=== PATIENT | male | born 1975 | race Caucasian/White ===

== ENCOUNTER 2020-08-10 11:23 | Emergency (ER) | payer OTHER, SELFPAY ==
[2020-08-10 11:24] VITALS: BP 109/48; PULSE 61; RESP 22; TEMP 36.5; O2SAT 99; BMI 34.7
--- NOTE | 2020-08-10 11:39 | ED.RN ---
pt states that he drank at least 12 IPA beers last night.
--- NOTE | 2020-08-10 11:46 | EKG12_ITS ---
Test Reason : Blood Pressure : / mmHG Vent. Rate : 060 BPM Atrial Rate : 060 BPM P-R Int : 156 ms QRS Dur : 088 ms QT Int : 412 ms P-R-T Axes : 006 -18 010 degrees QTc Int : 412 ms Normal sinus rhythm Normal ECG Confirmed by ESTHER PEREZ, LORRAINE ([id number]), editor managing director BLACK ZELAYA ([id number]) on 08/13/2020 10:54:55 AM Referred By: Confirmed By:LORRAINE SANTANA MD
[2020-08-10 12:05] VITALS: PULSE 69; RESP 17
[2020-08-10 12:10] LABS: Absolute Lymphocyte Count 2.28 X10^3/uL (0.83-4.51); Absolute Neutrophil Count 2.8 X10^3/uL (2.0-7.7); Basophil# 0.05 X10^3/uL; Basophil% 0.8 % (0-1); Eosinophils% 6.5 % (0-5); Hematocrit 33.4 % (40-54); Hemoglobin 11.5 g/dL (13.0-16.5); Lymphocyte # 2.28 X10^3/ul (4.0); Lymphocyte % 37.2 % (19-41); Mean Corp Hgb Conc 34.4 g/dL (32-36); Mean Corpuscular Hgb 32.1 pg (27.0-32.0); Mean Corpuscular Volume 93.3 fL (80-94); Mean Platelet Vol. 10.1 fl (6.2-12.0); Monocyte# 0.57 X10^3/uL; Monocyte% 9.3 % (0-10); NRBC Flagged by Analyzer 0 % (0-5); Neutrophil # 2.78 X10^3/uL (2.7-7.7); Neutrophil % 45.4 % (47-70); Platelet Count 255 K/mm3 (150-450); RBC Distribution Width CV 12.1 % (11.6-14.6); RBC Distribution Width SD 41.8 fl (35.1-43.9); Red Blood Count 3.58 M/mm3 (4.6-6.2); White Blood Count 6.1 K/mm3 (4.4-11.0)
--- NOTE | 2020-08-10 12:15 | RAD_ITS ---
STUDY: X-RAY - ABDOMEN/PELVIS REASON FOR EXAM: Male, 45 years old. NG Placement TECHNIQUE: Single AP view of the abdomen / pelvis. COMPARISON: None. FINDINGS: Nasogastric tube with the tip in the cardia the stomach and the side-port in the distal esophagus. This should likely be advanced. Moderate gastric distention. The visualized liver, spleen and kidneys are grossly normal in size and morphology. Normal soft tissue structures. Normal visualized osseous structures. RAD/Abdomen Single View (Portable) IMPRESSION: Nasogastric tube with the tip in the cardia the stomach which likely should be advanced. Moderate gastric distention. Electronically Signed: Alex Hanley MD at 12:52 EST Tel , Service support ,
--- NOTE | 2020-08-10 12:17 | ED.RN ---
pt was placed in a seated position to prepare for ng placement. pt repeatedly stating he feels light headed, im goning to pass out. pt becomes unresponsive, eyes roll back, pt began to shake. once pt becomes alert, vomits blood. dr. maya aware.
[2020-08-10 12:19] LABS: Alcohol, Blood (Medical)-Serum < 3.0 mg/dL
[2020-08-10] MEDS: Lidocaine 4% 5 ML Ampul 2 ML INHALATION (12:23)
[2020-08-10 12:24] VITALS: BP 135/76; PULSE 93; RESP 18; O2SAT 99
[2020-08-10] MEDS: 0.9% Normal Saline 1,000 ML 999 ML IV (12:24)
[2020-08-10 12:28] LABS: AST(SGOT) 16 U/L (15-37); Alanine Aminotransfer ALT/SGPT 29 U/L (16-61); Albumin, Serum 2.9 g/dL (3.2-5.0); Alkaline Phosphatase 44 U/L (45-117); Anion Gap 8 (5-15); BUN 28 mg/dL (7-18); BUN/Creat Ratio 26.4 RATIO (10-20); Calcium,Total 7.6 mg/dL (8.5-10.1); Chloride 109 mmol/L (98-107); Creatinine, Serum 1.06 mg/dL (0.70-1.30); EST Glomerular Filtration Rate 81 mL/min (>60); Est Glom Filt Rate - Afr Amer 98 mL/min (>60); Globulin 2.9 g/dL (2.2-4.2); Glucose 131 mg/dL (74-106); Lipase 90 U/L (73-393); Potassium 3.9 mmol/L (3.5-5.1); Protein, Total 5.8 g/dL (6.4-8.2); Sodium Level 140 mmol/L (136-145)
--- NOTE | 2020-08-10 12:34 | ED.VISSUMM ---
- ER Visit Summary Date of Service: 08/10/20 Chief Complaint: GI bleed History of Present Illness: The patient is a 45 M presenting with vomiting blood. Patient states he did not feel well this morning. He started to have chills and lightheadedness. He then felt very lightheaded and passed out. During this episode he began vomiting blood. He states that he uses ibuprofen daily for back pain. He states he uses 6-10 tabs per day. He has been doing this at least for the past 6 months. Denies black stool or blood in stool. He is not on anticoagulants. He also states he drinks frequently throughout the week. He does not drink daily but drinks 12-36 beers per week. He smokes 1 cigar/week. He does drink caffeine daily. Denies drug use. Denies other complaints. No known exposure to Covid. Physical Examination: Vitals are stable. Blood pressure 135/76, temp 97.7, heart rate 93, respiratory rate 18. Pulse ox 99% on room air. Alert no acute distress. HEENT exam pallor, dry mucous membranes Neck is supple. Lungs are clear and equal bilaterally. Heart is regular rate and rhythm. Abdomen is soft nontender nondistended. No guarding or rebound Extremities are unremarkable. Skin is warm and dry. Pallor No focal neurologic deficit. Remainder of exam is unremarkable. Emergency Department Course and Treatment: EKG is sinus rhythm rate of 60 with no acute ischemic changes. CBC, chemistries are unremarkable other than hemoglobin 11.5, BUN 28. Alcohol is negative. Covid is pending. Patient had an episode of vomiting blood and syncope again in the ED. He was given Protonix IV, Zofran, IV fluids. He was ordered packed red blood cells. He was given lidocaine aerosol and NG tube was placed. NG tube suctioned bright red blood. [facility], [facility], [facility] are currently full. Discussed with [facility] for transfer. Disposition: Transfer to [facility] Impression: Upper GI bleed, syncope This note was generated with [employer] dictation software. It may contain incorrect words, spelling, and punctuation that were not noted in review of the chart prior to signing ED Disposition - Plan for ED Patient: Referrals: Yariel Vegas MD [Primary Care Provider] -
[2020-08-10 12:38] VITALS: BP 135/76; PULSE 770; RESP 18; O2SAT 98
--- NOTE | 2020-08-10 12:43 | ED.RN ---
attempted to call [facility] er to give report, no answer.
[2020-08-10] MEDS: Ondansetron 4 MG/2 ML Vial IV (12:52)
[2020-08-10 12:53] VITALS: BP 135/76; PULSE 77; RESP 18; O2SAT 100
--- NOTE | 2020-08-10 13:08 | ED.RN ---
2nd attempt to call emergency department.
--- NOTE | 2020-08-10 13:10 | ED.RN ---
per maulik at the transfer center, this rn does not need to call report to the emergency department.
--- NOTE | 2020-08-10 13:39 | ED.RN ---
girlfriend uma rojo [phone]
== END 2020-08-10 13:55 | disposition short-term general hospital (02) ==
LOC: ED 11:56
PROVIDERS: Emergency Provider Emergency Medicine; PCP Family Medicine
DX: K92.2 Gastrointestinal hemorrhage, unspecified (principal); R55 Syncope and collapse; F17.200 Nicotine dependence, unspecified, uncomplicated
CPT/HCPCS: 74018; 80053; 82077; 83690; 85025; 86850; 86900; 86901; 86920; 86922; 87426; 93005; 94640; 96365; 96375; 99285; J7030; A4216; J2405; J3490

== ENCOUNTER → 2020-08-27 11:46 | Outpatient (CLI) | payer OTHER, SELFPAY ==
[2020-08-10 11:24] VITALS: BMI 34.7
[2020-08-27 15:19] LABS: Hematocrit 33.6 % (40-54); Hemoglobin 10.4 g/dL (13.0-16.5); Mean Corpuscular Hgb 28.6 pg (27.0-32.0); Mean Corpuscular Volume 92.3 fL (80-94); Mean Platelet Vol. 9.5 fl (6.2-12.0); Platelet Count 468 K/mm3 (150-450); RBC Distribution Width CV 15.4 % (11.6-14.6); RBC Distribution Width SD 50.6 fl (35.1-43.9); Red Blood Count 3.64 M/mm3 (4.6-6.2); White Blood Count 4.6 K/mm3 (4.4-11.0)
[2020-08-27 15:45] LABS: Anion Gap 6 (5-15); BUN 11 mg/dL (7-18); BUN/Creat Ratio 10.8 RATIO (10-20); Chloride 109 mmol/L (98-107); Creatinine, Serum 1.02 mg/dL (0.70-1.30); EST Glomerular Filtration Rate 85 mL/min (>60); Est Glom Filt Rate - Afr Amer 102 mL/min (>60); Glucose 82 mg/dL (74-106); Potassium 4.2 mmol/L (3.5-5.1); Sodium Level 142 mmol/L (136-145)
== END ==
PROVIDERS: PCP Family Medicine
DX: K92.2 Gastrointestinal hemorrhage, unspecified (principal)
CPT/HCPCS: 36415; 80048; 85027

== ENCOUNTER → 2020-10-01 10:37 | Outpatient (CLI) | payer OTHER, SELFPAY ==
[2020-10-01 12:34] LABS: Hematocrit 40.9 % (40-54); Hemoglobin 13.6 g/dL (13.0-16.5); Mean Corp Hgb Conc 33.3 g/dL (32-36); Mean Corpuscular Hgb 30.1 pg (27.0-32.0); Mean Corpuscular Volume 90.5 fL (80-94); Mean Platelet Vol. 10.6 fl (6.2-12.0); Platelet Count 306 K/mm3 (150-450); RBC Distribution Width CV 14.1 % (11.6-14.6); Red Blood Count 4.52 M/mm3 (4.6-6.2); White Blood Count 4.2 K/mm3 (4.4-11.0)
[2020-10-01 12:52] LABS: ALB/GLOB Ratio 1.1 RATIO (0.9-2.4); AST(SGOT) 14 U/L (15-37); Alanine Aminotransfer ALT/SGPT 24 U/L (16-61); Albumin, Serum 3.8 g/dL (3.2-5.0); Alkaline Phosphatase 56 U/L (45-117); Anion Gap 4 (5-15); BUN 11 mg/dL (7-18); BUN/Creat Ratio 8.7 RATIO (10-20); Calcium,Total 8.9 mg/dL (8.5-10.1); Chloride 110 mmol/L (98-107); Creatinine, Serum 1.27 mg/dL (0.70-1.30); EST Glomerular Filtration Rate 66 mL/min (>60); Est Glom Filt Rate - Afr Amer 79 mL/min (>60); Ferritin 12 ng/mL (26-388); Globulin 3.6 g/dL (2.2-4.2); Glucose 99 mg/dL (74-106); Iron 43 ug/dL (65-175); Potassium 4.1 mmol/L (3.5-5.1); Protein, Total 7.4 g/dL (6.4-8.2); Sodium Level 139 mmol/L (136-145)
== END ==
PROVIDERS: PCP Family Medicine; Referring Provider Family Medicine; Visit Provider Family Medicine
DX: K92.2 Gastrointestinal hemorrhage, unspecified (principal); R79.89 Other specified abnormal findings of blood chemistry
CPT/HCPCS: 36415; 80053; 82728; 83540; 85027

== ENCOUNTER → 2020-10-10 14:36 | Outpatient (CLI) | payer OTHER, SELFPAY ==
[2020-10-10 17:27] LABS: Hematocrit 40.3 % (40-54); Hemoglobin 13.3 g/dL (13.0-16.5); Mean Corpuscular Hgb 29.4 pg (27.0-32.0); Mean Corpuscular Volume 89.2 fL (80-94); Mean Platelet Vol. 10.5 fl (6.2-12.0); Platelet Count 297 K/mm3 (150-450); RBC Distribution Width CV 14.2 % (11.6-14.6); RBC Distribution Width SD 46.5 fl (35.1-43.9); Red Blood Count 4.52 M/mm3 (4.6-6.2); White Blood Count 4.5 K/mm3 (4.4-11.0)
[2020-10-10 17:33] LABS: Prothrombin Time (Protime)PT. 12.3 SECONDS (11.7-14.9)
[2020-10-10 17:59] LABS: ALB/GLOB Ratio 1.1 RATIO (0.9-2.4); AST(SGOT) 25 U/L (15-37); Alanine Aminotransfer ALT/SGPT 35 U/L (16-61); Albumin, Serum 3.9 g/dL (3.2-5.0); Alkaline Phosphatase 55 U/L (45-117); Anion Gap 7 (5-15); BUN 12 mg/dL (7-18); BUN/Creat Ratio 11.3 RATIO (10-20); Calcium,Total 9.2 mg/dL (8.5-10.1); Chloride 104 mmol/L (98-107); Creatinine, Serum 1.06 mg/dL (0.70-1.30); EST Glomerular Filtration Rate 81 mL/min (>60); Est Glom Filt Rate - Afr Amer 98 mL/min (>60); Globulin 3.7 g/dL (2.2-4.2); Glucose 85 mg/dL (74-106); Potassium 3.8 mmol/L (3.5-5.1); Protein, Total 7.6 g/dL (6.4-8.2); Sodium Level 141 mmol/L (136-145)
[2020-10-12 12:17] LABS: AFP, Tumor Marker 3.8 ng/mL (0.0-8.3)
== END ==
PROVIDERS: PCP Family Medicine; Referring Provider Internal Medicine Gastroenterology; Visit Provider Internal Medicine Gastroenterology
DX: K74.60 Unspecified cirrhosis of liver (principal)
CPT/HCPCS: 36415; 80053; 82105; 85027; 85610

== ENCOUNTER → 2020-10-29 14:01 | Outpatient (CLI) | payer OTHER, SELFPAY | PROVIDERS: PCP Family Medicine; Referring Provider Internal Medicine Gastroenterology; Visit Provider Internal Medicine Gastroenterology | DX: Z11.59 Encounter for screening for other viral diseases (principal) | CPT/HCPCS: 87635; C9803; U0002 ==

== ENCOUNTER → 2020-11-07 10:05 | Outpatient (CLI) | payer OTHER, SELFPAY ==
[2020-11-07 13:31] LABS: Anion Gap 4 (5-15); BUN 13 mg/dL (7-18); BUN/Creat Ratio 12.9 RATIO (10-20); Calcium,Total 8.8 mg/dL (8.5-10.1); Chloride 108 mmol/L (98-107); Creatinine, Serum 1.01 mg/dL (0.70-1.30); EST Glomerular Filtration Rate 85 mL/min (>60); Est Glom Filt Rate - Afr Amer 103 mL/min (>60); Glucose 83 mg/dL (74-106); Magnesium 2.1 mg/dL (1.6-2.6); Sodium Level 140 mmol/L (136-145)
[2020-11-10 18:44] LABS: Thyroid Stim Hormone (TSH) 0.98 uIU/mL (0.358-3.74)
== END ==
PROVIDERS: PCP Family Medicine; Referring Provider Internal Medicine Gastroenterology; Visit Provider Internal Medicine Gastroenterology
DX: I49.9 Cardiac arrhythmia, unspecified (principal)
CPT/HCPCS: 36415; 80048; 83735; 84443

== ENCOUNTER → 2021-12-17 | Outpatient (CLI) | payer OTHER, SELFPAY ==
[2021-12-17 15:52] LABS: Absolute Lymphocyte Count 1.39 X10^3/uL (0.83-4.51); Absolute Neutrophil Count 2.3 X10^3/uL (2.0-7.7); Basophil# 0.03 X10^3/uL; Basophil% 0.7 % (0-1); Eosinophil# 0.19 X10^3/uL; Eosinophils% 4.3 % (0-5); Hematocrit 45.8 % (40-54); Hemoglobin 15.6 g/dL (13.0-16.5); Lymphocyte # 1.39 X10^3/ul (0.83-4.51); Lymphocyte % 31.5 % (19-41); Mean Corp Hgb Conc 34.1 g/dL (32-36); Mean Corpuscular Hgb 32.4 pg (27.0-32.0); Mean Platelet Vol. 10.2 fl (6.2-12.0); Monocyte# 0.51 X10^3/uL; Monocyte% 11.6 % (0-10); NRBC Flagged by Analyzer 0 % (0-5); Neutrophil # 2.27 X10^3/uL (2.7-7.7); Neutrophil % 51.4 % (47-70); Platelet Count 290 K/mm3 (150-450); RBC Distribution Width CV 12.1 % (11.6-14.6); RBC Distribution Width SD 42.4 fl (35.1-43.9); Red Blood Count 4.82 M/mm3 (4.6-6.2); White Blood Count 4.4 K/mm3 (4.4-11.0)
[2021-12-17 16:19] LABS: ALB/GLOB Ratio 1.1 RATIO (0.9-2.4); AST(SGOT) 33 U/L (15-37); Alanine Aminotransfer ALT/SGPT 63 U/L (16-61); Albumin, Serum 3.9 g/dL (3.2-5.0); Alkaline Phosphatase 41 U/L (45-117); Anion Gap 5 (5-15); BUN 13 mg/dL (7-18); BUN/Creat Ratio 12.5 RATIO (10-20); Calcium,Total 9.4 mg/dL (8.5-10.1); Chloride 107 mmol/L (98-107); Cholesterol 175 mg/dL (200); Creatinine, Serum 1.04 mg/dL (0.70-1.30); EST Glomerular Filtration Rate 82 mL/min (>60); Est Glom Filt Rate - Afr Amer 99 mL/min (>60); Ferritin 87 ng/mL (26-388); GGTP 26 U/L (15-85); Globulin 3.6 g/dL (2.2-4.2); Glucose 75 mg/dL (74-106); High Density Lipoprotein 50 mg/dL; Iron 142 ug/dL (65-175); Potassium 4.1 mmol/L (3.5-5.1); Protein, Total 7.5 g/dL (6.4-8.2); Sodium Level 138 mmol/L (136-145); Triglycerides 131 mg/dL; Very Low Density Lipoprotein 26 mg/dL (5-40)
[2021-12-17 16:41] LABS: Vitamin B12 292 pg/mL (211-911); Vitamin D,25 Hydroxy 30.7 ng/mL
== END | disposition home or self-care (01) ==
LOC: MFPLAB 12:31
PROVIDERS: PCP Family Medicine; Visit Provider Family Medicine
DX: F10.10 Alcohol abuse, uncomplicated (principal)
CPT/HCPCS: 36415; 80053; 80061; 82306; 82607; 82728; 82977; 83540; 85025

== ENCOUNTER → 2022-01-08 | Outpatient (CLI) | payer OTHER, SELFPAY ==
--- NOTE | 2022-01-08 07:51 | US_ITS ---
STUDY: ABDOMINAL ULTRASOUND - RIGHT UPPER QUADRANT REASON FOR VISIT: Male, 46 years old ALCOHOL ABUSE TECHNIQUE: Ultrasound evaluation of the right upper quadrant was performed with real-time and static stanley-scale imaging. TECHNICAL QUALITY: Adequate. COMPARISON: None. FINDINGS: Liver: The liver measures 15.1 cm. There is a heterogeneous echogenicity of the liver. The bile ducts are within normal limits. There is hepatic color flow. The direction of portal flow is hepatopetal. There is no demonstrated mass lesion. Gallbladder: Normal distended gallbladder. The gallbladder wall measures 2 mm. There is a negative sonographic Martel''s sign. There is no pericholecystic fluid. There are no gallstones. Common Bile Duct (C.B.D.): The common bile duct measures 4 mm. Pancreas: Normal size of the head, body and tail of the pancreas. There is normal echogenicity of the pancreas. There is no demonstrated pancreatic mass or cyst. Right Kidney: Normal size of the right kidney. The right kidney measures 11.6 cm x 5.9 cm x 5.9 cm. Normal renal cortex. The right cortex measures 1.5 cm. There is no demonstrated renal mass or cyst. There is no right hydronephrosis. US/Abdomen Limited IMPRESSION: Heterogeneous echotexture of the liver. Electronically Signed: Juan Miguel Iverson MD at 11:06 EDT ,
--- NOTE | 2022-01-08 07:52 | US_ITS ---
STUDY: ABDOMINAL ULTRASOUND - ELASTOGRAPHY REASON FOR VISIT: Male, 46 years old. Alcohol abuse. TECHNIQUE: Liver stiffness measurements were obtained on a [employer] RS 85 ultrasound machine using a CA 1-7 probe following the SRU guidelines. 3 measurements were obtained using a 2-D-SWE method. TheIQR/M was 19 % suggesting a quality data set. TECHNICAL QUALITY: Adequate. COMPARISON: Comparison is made with prior study done earlier in the day. FINDINGS: Liver: Fatty infiltration of the liver. Median liver stiffness measured 9.3 kPa. US/Elastography Parenchyma/Organ IMPRESSION: Liver stiffness measures 9.3 kPa compatible with F2-F3 (Mild to moderate liver fibrosis) Metavir score. Electronically Signed: Juan Miguel Iverson MD at 11:03 EDT ,
== END | disposition home or self-care (01) ==
PROVIDERS: PCP Family Medicine; Referring Provider Family Medicine; Visit Provider Family Medicine
DX: F10.10 Alcohol abuse, uncomplicated (principal)
CPT/HCPCS: 76705; 76981

== ENCOUNTER → 2022-03-31 | Outpatient (CLI) | payer OTHER, SELFPAY ==
[2022-03-31 16:57] LABS: Absolute Lymphocyte Count 1.96 X10^3/uL (0.83-4.51); Absolute Neutrophil Count 2.6 X10^3/uL (2.0-7.7); Basophil# 0.07 X10^3/uL; Basophil% 1.2 % (0-1); Eosinophil# 0.41 X10^3/uL; Eosinophils% 7.3 % (0-5); Hematocrit 41.3 % (40-54); Hemoglobin 14.4 g/dL (13.0-16.5); Lymphocyte # 1.96 X10^3/ul (0.83-4.51); Lymphocyte % 34.9 % (19-41); Mean Corp Hgb Conc 34.9 g/dL (32-36); Mean Corpuscular Hgb 32.4 pg (27.0-32.0); Mean Platelet Vol. 9.7 fl (6.2-12.0); Monocyte# 0.53 X10^3/uL; Monocyte% 9.4 % (0-10); NRBC Flagged by Analyzer 0 % (0-5); Neutrophil # 2.62 X10^3/uL (2.7-7.7); Neutrophil % 46.8 % (47-70); Platelet Count 252 K/mm3 (150-450); RBC Distribution Width CV 12.4 % (11.6-14.6); RBC Distribution Width SD 42.9 fl (35.1-43.9); Red Blood Count 4.44 M/mm3 (4.6-6.2); White Blood Count 5.6 K/mm3 (4.4-11.0)
[2022-03-31 17:04] LABS: Prothrombin Time (Protime)PT. 12.4 SECONDS (11.7-14.9)
[2022-03-31 17:10] LABS: Erythrocyte Sedimentation Rate 8 mm/hr (0-20)
[2022-03-31 17:22] LABS: AST(SGOT) 25 U/L (15-37); Alanine Aminotransfer ALT/SGPT 42 U/L (16-61); Albumin, Serum 3.8 g/dL (3.2-5.0); Alkaline Phosphatase 53 U/L (45-117); Anion Gap 8 (5-15); BUN 14 mg/dL (7-18); BUN/Creat Ratio 13.9 RATIO (10-20); CRP 2.95 mg/L (0.0-3.0); Calcium,Total 8.9 mg/dL (8.5-10.1); Chloride 105 mmol/L (98-107); Creatinine, Serum 1.01 mg/dL (0.70-1.30); EST Glomerular Filtration Rate 85 mL/min (>60); Est Glom Filt Rate - Afr Amer 103 mL/min (>60); Ferritin 116 ng/mL (26-388); Globulin 3.7 g/dL (2.2-4.2); Glucose 82 mg/dL (74-106); LDH 211 U/L (87-241); Potassium 3.6 mmol/L (3.5-5.1); Protein, Total 7.5 g/dL (6.4-8.2); Sodium Level 140 mmol/L (136-145)
[2022-03-31 17:26] LABS: Hemoglobin A1c 5.3 % (3.8-5.6)
[2022-03-31 17:42] LABS: HIV - WCH Non-Reactive (Nonreactive)
[2022-04-02 14:09] LABS: Anti-Centromere B Ab <0.2 AI (0.0-0.9); Anti-Chromatin <0.2 AI (0.0-0.9); Anti-Jo <0.2 AI (0.0-0.9); Anti-Scleroderma-70 AB <0.2 AI (0.0-0.9); RNP Ab <0.2 AI (0.0-0.9); SJOGREN'S Anti-SS-A test < 0.2 AI (0.0-0.9); SJOGREN'S Anti-SS-B test < 0.2 AI (0.0-0.9); Smith Ab <0.2 AI (0.0-0.9)
[2022-04-02 14:51] LABS: Anti-Mitochondrial AB <20.0 Units (0.0-20.0); Anti-dsDNA Ab <1 IU/mL (0-9)
[2022-04-04 14:07] LABS: Angiotensin Convert Enzyme 62 U/L (14-82); Ceruloplasmin 21.9 mg/dL (16.0-31.0); Cytoplasmic Ab (C-ANCA) <1:20 titer (Neg:<1:20); HEPATITIS B SURFACE AG Negative (Negative); Hep C Antibodies <0.1 s/co ratio (0.0-0.9); Hepatitis A IgM Antibody Negative (Negative); Hepatitis B Core AB IgM Negative (Negative)
[2022-04-05 11:17] LABS: Anti-Smooth Muscle ABS 4 Units (0-19)
[2022-04-05 11:18] LABS: AFP, Tumor Marker 4.9 ng/mL (0.0-6.9); Copper, Serum or Plasma 82 ug/dL (69-132); Haptoglobin 87 mg/dL (23-355); Perinuclear Ab (P-ANCA) <1:20 titer (Neg:<1:20)
== END | disposition home or self-care (01) ==
PROVIDERS: PCP Family Medicine; Visit Provider Internal Medicine Gastroenterology
DX: K76.9 Liver disease, unspecified (principal)
CPT/HCPCS: 80053; 80074; 82105; 82140; 82164; 82390; 82525; 82728; 83010; 83036; 83516; 83615; 85025; 85610; 85652; 86140; 86225; 86235; 86256; 86703

== ENCOUNTER → 2022-07-26 | Outpatient (CLI) | payer OTHER, SELFPAY ==
[2022-07-26 16:46] LABS: Absolute Lymphocyte Count 1.76 X10^3/uL (0.83-4.51); Absolute Neutrophil Count 6.2 X10^3/uL (2.0-7.7); Basophil# 0.05 X10^3/uL; Basophil% 0.6 % (0-1); Eosinophil# 0.08 X10^3/uL; Eosinophils% 0.9 % (0-5); Hematocrit 42.7 % (40-54); Hemoglobin 14.7 g/dL (13.0-16.5); Lymphocyte # 1.76 X10^3/ul (0.83-4.51); Lymphocyte % 20.2 % (19-41); Mean Corp Hgb Conc 34.4 g/dL (32-36); Mean Corpuscular Hgb 32.2 pg (27.0-32.0); Mean Corpuscular Volume 93.4 fL (80-94); Mean Platelet Vol. 10.4 fl (6.2-12.0); Monocyte# 0.59 X10^3/uL; Monocyte% 6.8 % (0-10); NRBC Flagged by Analyzer 0 % (0-5); Neutrophil # 6.19 X10^3/uL (2.7-7.7); Neutrophil % 71.2 % (47-70); Platelet Count 291 K/mm3 (150-450); RBC Distribution Width CV 12.1 % (11.6-14.6); RBC Distribution Width SD 41.7 fl (35.1-43.9); Red Blood Count 4.57 M/mm3 (4.6-6.2); White Blood Count 8.7 K/mm3 (4.4-11.0)
[2022-07-26 17:20] LABS: ALB/GLOB Ratio 1.1 RATIO (0.9-2.4); AST(SGOT) 20 U/L (15-37); Alanine Aminotransfer ALT/SGPT 28 U/L (16-61); Albumin, Serum 3.9 g/dL (3.2-5.0); Alkaline Phosphatase 43 U/L (45-117); Anion Gap 6 (5-15); BUN 20 mg/dL (7-18); BUN/Creat Ratio 13.1 RATIO (10-20); Calcium,Total 9.3 mg/dL (8.5-10.1); Chloride 105 mmol/L (98-107); Creatinine, Serum 1.53 mg/dL (0.70-1.30); EST Glomerular Filtration Rate 53 mL/min (>60); Est Glom Filt Rate - Afr Amer 64 mL/min (>60); Globulin 3.4 g/dL (2.2-4.2); Glucose 80 mg/dL (74-106); Potassium 4.1 mmol/L (3.5-5.1); Protein, Total 7.3 g/dL (6.4-8.2); Sodium Level 138 mmol/L (136-145)
== END | disposition home or self-care (01) ==
LOC: LAB 14:36
PROVIDERS: PCP Family Medicine; Referring Provider Internal Medicine Gastroenterology; Visit Provider Internal Medicine Gastroenterology
DX: K76.9 Liver disease, unspecified (principal)
CPT/HCPCS: 36415; 80053; 85025

== ENCOUNTER → 2022-12-27 | Outpatient (CLI) | payer OTHER, MEDICAID, SELFPAY ==
[2022-12-27 12:01] LABS: Absolute Lymphocyte Count 1.39 X10^3/uL (0.83-4.51); Absolute Neutrophil Count 2.1 X10^3/uL (2.0-7.7); Basophil# 0.04 X10^3/uL; Eosinophil# 0.24 X10^3/uL; Eosinophils% 5.9 % (0-5); Hematocrit 46.9 % (40-54); Hemoglobin 15.7 g/dL (13.0-16.5); Lymphocyte # 1.39 X10^3/ul (0.83-4.51); Lymphocyte % 34.3 % (19-41); Mean Corp Hgb Conc 33.5 g/dL (32-36); Mean Corpuscular Volume 95.5 fL (80-94); Mean Platelet Vol. 9.4 fl (6.2-12.0); Monocyte% 7.4 % (0-10); NRBC Flagged by Analyzer 0 % (0-5); Neutrophil # 2.08 X10^3/uL (2.7-7.7); Neutrophil % 51.4 % (47-70); Platelet Count 267 K/mm3 (150-450); RBC Distribution Width SD 46.1 fl (35.1-43.9); Red Blood Count 4.91 M/mm3 (4.6-6.2); White Blood Count 4.1 K/mm3 (4.4-11.0)
[2022-12-27 12:29] LABS: ALB/GLOB Ratio 1.1 RATIO (0.9-2.4); AST(SGOT) 17 U/L (15-37); Alanine Aminotransfer ALT/SGPT 25 U/L (16-61); Albumin, Serum 3.9 g/dL (3.2-5.0); Alkaline Phosphatase 49 U/L (45-117); Anion Gap 4 (5-15); BUN 14 mg/dL (7-18); BUN/Creat Ratio 12.5 RATIO (10-20); Calcium,Total 9.3 mg/dL (8.5-10.1); Chloride 107 mmol/L (98-107); Creatinine, Serum 1.12 mg/dL (0.70-1.30); EST Glomerular Filtration Rate 75 mL/min (>60); Est Glom Filt Rate - Afr Amer 91 mL/min (>60); Globulin 3.7 g/dL (2.2-4.2); Glucose 95 mg/dL (74-106); Potassium 4.2 mmol/L (3.5-5.1); Protein, Total 7.6 g/dL (6.4-8.2); Sodium Level 140 mmol/L (136-145)
== END | disposition home or self-care (01) ==
LOC: LAB 11:37
PROVIDERS: PCP Family Medicine; Referring Provider Nurse Practitioner Adult Health; Visit Provider Nurse Practitioner Adult Health
DX: K74.00 Hepatic fibrosis, unspecified (principal)
CPT/HCPCS: 36415; 80053; 85025

== ENCOUNTER → 2023-01-13 | Outpatient (CLI) | payer OTHER, MEDICAID, SELFPAY ==
--- NOTE | 2023-01-13 09:46 | US_ITS ---
STUDY: ABDOMINAL ULTRASOUND - RIGHT UPPER QUADRANT; ELASTOGRAPHY REASON FOR VISIT: Male, 47 years old. Hepatic fibrosis. TECHNIQUE: Ultrasound evaluation of the right upper quadrant was performed with real-time and static stanley-scale imaging. Point quantification shear wave elastography was performed ([employer]). TECHNICAL QUALITY: Adequate. COMPARISON: Comparison is made with prior study dated January 08, 2022. FINDINGS: Liver: The liver measures 16.9 cm. There is a heterogeneous echogenicity of the liver. The bile ducts are within normal limits. There is hepatic color flow. The direction of portal flow is hepatopetal. There is no demonstrated mass lesion. Median liver stiffness measured 5.3 kPa. Gallbladder: Normal distended gallbladder. The gallbladder wall measures 2.0 mm. There is a negative sonographic Martel''s sign. There is no pericholecystic fluid. There are no gallstones. Common Bile Duct (C.B.D.): The common bile duct measures 4 mm. Pancreas: There is normal echogenicity of the visualized pancreas. There is no demonstrated pancreatic mass or cyst. Right Kidney: Normal size of the right kidney. The right kidney measures 10.9 cm x 6.1 cm x 5.2 cm. Normal renal cortex. The right cortex measures 1.5 cm. There is no demonstrated renal mass or cyst. There is no right hydronephrosis. US/ABD Limited w/ Elastography IMPRESSION: 1. Liver stiffness measures 5.3 kPa compatible with F0-F1 (Normal to mild liver fibrosis) Metavir score. Electronically Signed: Juan Miguel Iverson MD at 10:02 EDT ,
== END | disposition home or self-care (01) ==
PROVIDERS: PCP Family Medicine; Referring Provider Nurse Practitioner Adult Health; Visit Provider Nurse Practitioner Adult Health
DX: K74.00 Hepatic fibrosis, unspecified (principal)
CPT/HCPCS: 76705; 76981

== ENCOUNTER 2024-01-26 12:25 | Inpatient (IN) | payer OTHER, MEDICAID, SELFPAY ==
[2024-01-26] VITALS (21 sets, daily range): BP systolic 61–122; BP diastolic 36–76; PULSE 59–119; RESP 12–27; TEMP 35–36.9; O2SAT 93–100; BMI 30.8
[2024-01-26] MEDS: 0.9% Normal Saline (1000mL) 1,000 ML 999 ML IV (12:38)
[2024-01-26] MEDS: Ondansetron 4 MG/2 ML Vial IV ×2 (12:41→14:25)
--- NOTE | 2024-01-26 12:41 | EDS_ITS ---
HPI <JANKI Cabrera - Last Filed: 01/26/24 15:45> History of Present Illness Chief Complaint: GI Bleed Narrative Narrative: 49-year-old male presents after vomiting blood. He did not feel well this morning and around 11 AM had bright red bloody emesis x 2. He states he passed out next to the toilet and when he woke up he called 911. He has not had any vomiting earlier this week and denies abdominal pain. Denies recent melena or hematochezia. He drinks 12-24 beers approximately 3 days a week. He states he had similar GI bleeding and perforated gastric ulcers in 2020 and was seen at [place] and transferred to [facility]. He does not think he had varices. He currently takes no medications. PFSH <JANKI Cabrera - Last Filed: 01/26/24 15:45> [facility] Medical History Hx of gastric ulcer Hx of gastrointestinal hemorrhage Home Medications ?Medication ?Instructions ?Recorded ?Last Taken ?Type NK 01/26/24 Unknown History Allergy/AdvReac Type Severity Reaction Status Date / Time No Known Allergies Allergy Verified 01/26/24 12:31 Social History Smoking Status: Current some day smoker tobacco type: cigars ROS <JANKI Cabrera - Last Filed: 01/26/24 15:45> ROS ED ROS Narrative Constitutional: Negative for fever, chills, malaise. CVS: Negative for chest pain. Respiratory: Negative for shortness of breath. GI: Negative for abdominal pain, melena, hematochezia. EXAM <JANKI Cabrera - Last Filed: 01/26/24 15:45> Physical Exam Narrative Exam Narrative: CONST: Patient lying down in bed in no distress. EYES: Normal inspection. ENT: Normal inspection, moist mucous membranes. Dried red blood around his mouth. NECK: Normal inspection. RESP: No respiratory distress, CTAB. CVS: Regular rate and rhythm, no murmur, no gallop. ABD: Soft and nontender, no guarding or rebound, nondistended, no hepatosplenomegaly. SKIN: Color normal, no rash, warm, dry, intact. EXTREMITIES: Normal appearance, no pedal edema. NEURO: Alert and answering questions appropriately. PSYCH: Normal affect. Const Vital Signs: 01/26/24 12:25 01/26/24 12:26 01/26/24 12:33 Temperature 95.0 F L Temperature Source Temporal Pulse Rate 59 L Respiratory Rate 17 Respiratory Pattern Normal Blood Pressure 75/44 L 84/48 L Blood Pressure Mean 54 60 Pulse Ox 95 Oxygen Delivery Method Room Air 01/26/24 12:33 01/26/24 12:37 01/26/24 12:43 Temperature Temperature Source Pulse Rate 71 65 70 Respiratory Rate 21 H 16 12 Respiratory Pattern Blood Pressure 97/64 97/64 Blood Pressure Mean 74 75 Pulse Ox 97 93 Oxygen Delivery Method Room Air 01/26/24 12:45 01/26/24 13:00 01/26/24 13:15 Temperature Temperature Source Pulse Rate 70 Respiratory Rate 14 Respiratory Pattern Blood Pressure 107/72 105/66 111/68 Blood Pressure Mean 81 78 82 Pulse Ox 94 Oxygen Delivery Method 01/26/24 13:16 01/26/24 13:30 01/26/24 13:45 Temperature Temperature Source Pulse Rate 72 73 78 Respiratory Rate 17 18 27 H Respiratory Pattern Blood Pressure 112/73 110/61 Blood Pressure Mean 84 76 Pulse Ox 97 96 97 Oxygen Delivery Method <Dr. Bam Quezada, DO - Last Filed: 01/26/24 19:15> Physical Exam Const Vital Signs: 01/26/24 12:25 01/26/24 12:26 01/26/24 12:33 Temperature 95.0 F L Temperature Source Temporal Pulse Rate 59 L Respiratory Rate 17 Respiratory Pattern Normal Blood Pressure 75/44 L 84/48 L Blood Pressure Mean 54 60 Pulse Ox 95 Oxygen Delivery Method Room Air 01/26/24 12:33 01/26/24 12:37 01/26/24 12:43 Temperature Temperature Source Pulse Rate 71 65 70 Respiratory Rate 21 H 16 12 Respiratory Pattern Blood Pressure 97/64 97/64 Blood Pressure Mean 74 75 Pulse Ox 97 93 Oxygen Delivery Method Room Air 01/26/24 12:45 01/26/24 13:00 01/26/24 13:15 Temperature Temperature Source Pulse Rate 70 Respiratory Rate 14 Respiratory Pattern Blood Pressure 107/72 105/66 111/68 Blood Pressure Mean 81 78 82 Pulse Ox 94 Oxygen Delivery Method 01/26/24 13:16 01/26/24 13:30 01/26/24 13:45 Temperature Temperature Source Pulse Rate 72 73 78 Respiratory Rate 17 18 27 H Respiratory Pattern Blood Pressure 112/73 110/61 Blood Pressure Mean 84 76 Pulse Ox 97 96 97 Oxygen Delivery Method MDM <JANKI Cabrera - Last Filed: 01/26/24 15:45> [facility] Narrative Medical decision making narrative: Patient with history of heavy alcohol use has had 2 episodes of bright red emesis followed by syncopal episode. He is awake and alert lying down in bed. Initial BP 75/44, heart rate in the 60s, and otherwise stable vital signs. He has dried red blood around his mouth. Abdomen is soft, nontender, nondistended. Hemoglobin is normal at 14.1. CMP is also overall within normal limits. INR is 1.0. CT shows findings suggestive of colitis and questionable blood within the stomach. After 1 L of IV fluids, Protonix bolus and drip, and Zofran patient's blood pressure is improving and is 110/61, HR 73. Around 2:10 PM patient had another episode bright red emesis approximately 120 cc. I consulted GI and DrDelon Arroyo recommended giving Rocephin and octreotide and will see the patient during admission. Case will be discussed with the hospitalist. Lab Data Attestation: I reviewed the patient's lab results. Labs: Laboratory Results - last 24 hr 01/26/24 01/26/24 12:40 12:50 WBC 7.5 RBC 4.34 L Hgb 14.1 Hct 40.6 MCV 93.5 MCH 32.5 H MCHC 34.7 RDW Std Deviation 45.2 H RDW Coeff of Rosmery 13.1 Plt Count 251 MPV 9.6 Immature Gran % (Auto) 1.200 H Neut % (Auto) 32.9 L Lymph % (Auto) 50.0 H Doniphan % (Auto) 10.3 H Eos % (Auto) 4.7 Baso % (Auto) 0.9 Absolute Neuts (auto) 2.5 Absolute Lymphs (auto) 3.73 Nucleated RBC % 0 PT 13.2 INR 1.0 Sodium 145 Potassium 3.7 Chloride 111 H Carbon Dioxide 21.0 Anion Gap 13 BUN 15 Creatinine 1.23 Estim Creat Clear Calc 100.20 Est GFR (MDRD) Af Amer 81 Est GFR (MDRD) Non-Af 67 BUN/Creatinine Ratio 12.2 Glucose 139 H Lactic Acid 3.2 H* Calcium 8.6 Phosphorus 4.3 Magnesium 2.1 Total Bilirubin 0.40 Direct Bilirubin 0.15 AST 24 ALT 41 Alkaline Phosphatase 45 Total Protein 7.1 Albumin 3.3 Globulin 3.8 Lipase 31 Blood Type B POSITIVE Antibody Screen NEGATIVE Crossmatch See Detail Radiography Diagnostic Testing: Clinical Impression(s) from Imaging Studies Abdomen/Pelvis CT 01/26/24 12:43 IMPRESSION: Findings suggestive of colitis. Questionable blood within the stomach. Clinical correlation recommended. Electronically Signed: Juan Miguel Iverson MD at 13:42 EDT , EKG Initial EKG: Attestation: I personally reviewed and interpreted this EKG as follows: Interpretation: Sinus Rhythm and No Acute Injury Pattern Comments: Normal sinus rhythm at 63 bpm Normal intervals, no acute ischemic changes <Dr. Bam Quezada, DO - Last Filed: 01/26/24 19:15> [facility] MDM Narrative Medical decision making narrative: Patient with history of heavy alcohol use has had 2 episodes of bright red emesis followed by syncopal episode. He is awake and alert lying down in bed. Initial BP 75/44, heart rate in the 60s, and otherwise stable vital signs. He has dried red blood around his mouth. Abdomen is soft, nontender, nondistended. Hemoglobin is normal at 14.1. CMP is also overall within normal limits. INR is 1.0. CT shows findings suggestive of colitis and questionable blood within the stomach. After 1 L of IV fluids, Protonix bolus and drip, and Zofran patient's blood pressure is improving and is 110/61, HR 73. Around 2:10 PM patient had another episode bright red emesis approximately 120 cc. I consulted GI and Dr. Arroyo recommended giving Rocephin and octreotide and will see the patient during admission. Case will be discussed with the hospitalist. Addendum Patient was seen and examined with Kathy physician front end assistant All components of the history and physical confirmed and agreed. History of present illness and physical exam: Patient is a 49-year-old male who presented to the emergency department with chief complaint of vomiting blood. He states that he did not not feel well when he woke up this morning and noted that he had 2 episodes of bright red blood into the toilet. He states that he passed out near the toilet and woke up and immediately called 911. He states that he does have a history of this approximately 3 years ago where he was transferred to [place] for a perforated ulcer he states that he had a endoscopy at that point time and does not remember being told that he has any history of esophageal varices. Patient denies any medications. States that he did have a period of time where he stopped drinking however he resumed drinking recently. Patient states that he did vomit last night however noted that he did not have any blood in his vomit at that point in time. Physical exam General: Patient was lying in bed resting comfortably did not appear to be in acute distress Head: Atraumatic, normocephalic ENT: Patient has dried blood around his mouth no active bleeding in the posterior pharynx noted Neck: Soft, supple, trachea midline Respiratory: Clear to auscultation bilaterally no rales rhonchi wheeze noted Cardiovascular: Regular rate and rhythm no murmurs gallops are noted Abdomen: Soft, nondistended, nontender to palpation no rebound or guarding on exam Extremities: +5/5 strength in the bilateral lower extremities Neurological: Patient flank pain is that he was at [facility] years 2023 Psychiatric: Mood affect appropriate MDM Patient's CBC was reviewed and showed no evidence of leukocytosis white blood count was notably 7.5, hemoglobin stable at 14.1, INR normal 1.5, sodium was notably normal 145, potassium normal at 3.7, creatinine normal 1.23. Patient lactic acid was elevated at 3.2, magnesium normal at 2.1, total bilirubin normal at 0.40. Patient AST and ALT are 24 and 41 respectively. Patient's lipase normal at 31. Patient's CT abdomen pelvis was reviewed as well which showed findings suggestive of colitis. Questionable blood within the stomach which would be in line with the vomiting blood that he has currently. Patient was given Protonix followed by placed on Protonix drip. Around 2:10 PM patient had another episode of bright red hematemesis about 120 cc. GI was consulted who recommended giving Rocephin octreotide which was ordered. Patient's case was discussed with hospitalist for admission. Plan: -Patient was given Rocephin, octreotide, Protonix and placed on Protonix drip -Patient case discussed with hospitalist for admission -Patient case discussed with gastroenterology Final impression: Upper GI bleed Disposition: Patient will be admitted to the hospital Supervising attending attestation: Bam Quezada D.O. Lab Data Labs: Laboratory Results - last 24 hr 01/26/24 01/26/24 12:40 12:50 WBC 7.5 RBC 4.34 L Hgb 14.1 Hct 40.6 MCV 93.5 MCH 32.5 H MCHC 34.7 RDW Std Deviation 45.2 H RDW Coeff of Rosemry 13.1 Plt Count 251 MPV 9.6 Immature Gran % (Auto) 1.200 H Neut % (Auto) 32.9 L Lymph % (Auto) 50.0 H Doniphan % (Auto) 10.3 H Eos % (Auto) 4.7 Baso % (Auto) 0.9 Absolute Neuts (auto) 2.5 Absolute Lymphs (auto) 3.73 Nucleated RBC % 0 PT 13.2 INR 1.0 Sodium 145 Potassium 3.7 Chloride 111 H Carbon Dioxide 21.0 Anion Gap 13 BUN 15 Creatinine 1.23 Estim Creat Clear Calc 100.20 Est GFR (MDRD) Af Amer 81 Est GFR (MDRD) Non-Af 67 BUN/Creatinine Ratio 12.2 Glucose 139 H Lactic Acid 3.2 H* Calcium 8.6 Phosphorus 4.3 Magnesium 2.1 Total Bilirubin 0.40 Direct Bilirubin 0.15 AST 24 ALT 41 Alkaline Phosphatase 45 Total Protein 7.1 Albumin 3.3 Globulin 3.8 Lipase 31 Blood Type B POSITIVE Antibody Screen NEGATIVE Crossmatch See Detail Radiography Diagnostic Testing: Clinical Impression(s) from Imaging Studies Abdomen/Pelvis CT 01/26/24 12:43 IMPRESSION: Findings suggestive of colitis. Questionable blood within the stomach. Clinical correlation recommended. Electronically Signed: Juan Miguel Iverson MD at 13:42 EDT , Discharge Plan Dx/Rx/DC Orders Clinical Impression: Acute upper gastrointestinal bleeding, Alcohol abuse, Acute hypotension, Syncope Disposition Disposition: Acute Care Hospital [facility] Discharge Date/Time: 01/26/24 16:13
--- NOTE | 2024-01-26 12:43 | CT_ITS ---
STUDY: CT ABDOMEN AND PELVIS WITH CONTRAST REASON FOR EXAM: Male, 49 years old. Hematemesis. History of GI bleed. Gastric ulcers. RADIATION DOSAGE (If Supplied By Facility): CTDIvol = ( 19.60 ) mGy, DLP = ( 1374.69 ) mGycm TECHNIQUE: Transaxial images were obtained from the dome of the diaphragm to the symphysis pubis without oral contrast. IV 100mL Isovue-300 was administered. Sagittal and coronal images were reconstructed. Individualized dose optimization techniques were used for this CT. COMPARISON: None. FINDINGS: Minimal degree of dependent bibasilar atelectasis. The visualized portions of the heart are within normal limits. Normal liver. Normal gallbladder and extrahepatic biliary system. Normal spleen. Calcific plaques in the region of the subclavian artery. Normal pancreas. Normal bilateral adrenal glands. Normal right kidney. Normal left kidney. The stomach is filled with fluid and residual food particles. Questionable increased density within the stomach. Blood should be ruled out. Normal small intestine. There is evidence of circumferential wall thickening and the increased markings in the surrounding peritoneal fat involving the ascending colon as well as the transverse colon and descending colon. Colitis should be ruled out. The appendix is visualized and appears normal. Normal abdominal aorta. Normal inferior vena cava. Normal retroperitoneum. Normal urinary bladder. Normal abdominal wall. Disc space narrowing and degeneration at the L4-L5 level. CT/Abdomen/Pelvis W IV Cont ONLY IMPRESSION: Findings suggestive of colitis. Questionable blood within the stomach. Clinical correlation recommended. Electronically Signed: Juan Miguel Iverson MD at 13:42 EDT ,
[2024-01-26] MEDS: Pantoprazole Sodium 40 MG in 0.9% Normal Saline (100mL MB+) 100 ML 330 MG IV (12:49)
[2024-01-26 12:54] LABS: Absolute Lymphocyte Count 3.73 X10^3/uL (0.83-4.51); Absolute Neutrophil Count 2.5 X10^3/uL (2.0-7.7); Basophil# 0.07 X10^3/uL; Basophil% 0.9 % (0-1); Eosinophil# 0.35 X10^3/uL; Eosinophils% 4.7 % (0-5); Hematocrit 40.6 % (40-54); Hemoglobin 14.1 g/dL (13.0-16.5); Lymphocyte # 3.73 X10^3/ul (0.83-4.51); Mean Corp Hgb Conc 34.7 g/dL (32-36); Mean Corpuscular Hgb 32.5 pg (27.0-32.0); Mean Corpuscular Volume 93.5 fL (80-94); Mean Platelet Vol. 9.6 fl (6.2-12.0); Monocyte# 0.77 X10^3/uL; Monocyte% 10.3 % (0-10); NRBC Flagged by Analyzer 0 % (0-5); Neutrophil # 2.45 X10^3/uL (2.7-7.7); Neutrophil % 32.9 % (47-70); Platelet Count 251 K/mm3 (150-450); RBC Distribution Width CV 13.1 % (11.6-14.6); RBC Distribution Width SD 45.2 fl (35.1-43.9); Red Blood Count 4.34 M/mm3 (4.6-6.2); White Blood Count 7.5 K/mm3 (4.4-11.0)
[2024-01-26 13:04] LABS: Prothrombin Time (Protime)PT. 13.2 SECONDS (11.7-14.9)
[2024-01-26 13:10] LABS: AST(SGOT) 24 U/L (15-37); Alanine Aminotransfer ALT/SGPT 41 U/L (16-61); Albumin, Serum 3.3 g/dL (3.2-5.0); Alkaline Phosphatase 45 U/L (45-117); Anion Gap 13 (5-15); BUN 15 mg/dL (7-18); BUN/Creat Ratio 12.2 RATIO (10-20); Bilirubin, Direct 0.15 mg/dL (0.00-0.30); Calcium,Total 8.6 mg/dL (8.5-10.1); Chloride 111 mmol/L (98-107); Creatinine, Serum 1.23 mg/dL (0.70-1.30); EST Glomerular Filtration Rate 67 mL/min (>60); Est Glom Filt Rate - Afr Amer 81 mL/min (>60); Globulin 3.8 g/dL (2.2-4.2); Glucose 139 mg/dL (74-106); Lipase 31 U/L (13-75); Potassium 3.7 mmol/L (3.5-5.1); Protein, Total 7.1 g/dL (6.4-8.2); Sodium Level 145 mmol/L (136-145)
[2024-01-26] MEDS: Pantoprazole Sodium 80 MG in 0.9% Normal Saline (100mL Bag) 80 ML 10 MG CONT INF ×2 (13:27→22:41)
[2024-01-26 13:53] LABS: Lactic Acid 3.2 mmol/L (0.4-1.9)
--- NOTE | 2024-01-26 14:43 | HP.PCM.HOS_ITS ---
HPI - General General Date of Admission: 01/26/24 Date of Service: 01/26/24 Chief Complaint: Vomiting blood today x 3, chronic alcoholism HPI Narrative JESSICA LOPEZ, is a 49 M with history of chronic alcohol disorder with dependence and tolerance came to ED after he vomited 3 times. First time he vomited little bit and second time was large, bright red to coffee-ground and then he passed out. Prior to that he was feeling very weak, lightheaded and drenched with sweats. Patient lives alone therefore does not know how long but he says probably short about 5 minutes. After that he was brought to ED. In ED his BP was low 80/48, heart rate 59/min. Patient is getting well resuscitated and blood pressure improved to 112/73 heart rate 73/min. No hypoxia. Patient denies abdominal pain but he states sometimes he gets minimal abdominal discomfort. For last few months, he complained of loose bowel movement 2-3 bowel movements about 2-3 times a week but nonbloody. He attributes to eating a lot of red meats. CT abdomen was done in ED which shows predominantly right-sided colitis. Patient is further admitted. Social history: Patient drinks alcohol about 4 times a week 15-20 beers each time. Usually does not drink hard liquor but yesterday drank water. Smokes cigar every day. Denies substance use. Family history: Noncontributory to the present illness. [facility] Medical History Hx of gastric ulcer Hx of gastrointestinal hemorrhage Home Medications ?Medication ?Instructions ?Recorded ?Last Taken ?Type NK 01/26/24 Unknown History Allergy/AdvReac Type Severity Reaction Status Date / Time No Known Allergies Allergy Verified 01/26/24 12:31 Social History Smoking Status: Current some day smoker tobacco type: cigars ROS ROS Narrative Constitutional: Reports acute onset of fatigue and weakness today. No fever. HEENT: Near syncope symptoms as described in HPI. Reports systems reviewed and no addt'l complaints, except as documented Respiratory/Chest: No acute shortness of breath or respiratory distress or wheezing. CVS: No chest pain pressure or tightness Gastrointestinal: As described in HPI. Genitourinary: Denies burning urination or new urinary tract symptoms Musculoskeletal: Denies acute joint pain or limited range of motion. No acute injury Neurologic: Denies seizure-like symptoms. skin: No ulcer. No rash Endocrinology: Reports systems reviewed and no addt'l complaints, except as documented Hematologic/Lymphatic: Reports systems reviewed and no addt'l complaints, except as documented Rest 14 ROS are negative except as mentioned in HPI Vital Signs Vital Signs Vital Signs: 01/26/24 12:25 01/26/24 12:26 01/26/24 12:33 Temperature 95.0 F L Temperature Source Temporal Pulse Rate 59 L Respiratory Rate 17 Respiratory Pattern Normal Blood Pressure 75/44 L 84/48 L Blood Pressure Mean 54 60 Pulse Ox 95 Oxygen Delivery Method Room Air 01/26/24 12:33 01/26/24 12:37 01/26/24 12:43 Temperature Temperature Source Pulse Rate 71 65 70 Respiratory Rate 21 H 16 12 Respiratory Pattern Blood Pressure 97/64 97/64 Blood Pressure Mean 74 75 Pulse Ox 97 93 Oxygen Delivery Method Room Air 01/26/24 12:45 01/26/24 13:00 01/26/24 13:15 Temperature Temperature Source Pulse Rate 70 Respiratory Rate 14 Respiratory Pattern Blood Pressure 107/72 105/66 111/68 Blood Pressure Mean 81 78 82 Pulse Ox 94 Oxygen Delivery Method 01/26/24 13:16 01/26/24 13:30 01/26/24 13:45 Temperature Temperature Source Pulse Rate 72 73 78 Respiratory Rate 17 18 27 H Respiratory Pattern Blood Pressure 112/73 110/61 Blood Pressure Mean 84 76 Pulse Ox 97 96 97 Oxygen Delivery Method Weight Weight: 246 lb 7.629 oz Body Mass Index (BMI) 30.8 Physical Exam Narrative General: Alert, Oriented x3, Cooperative. Looks exhausted HEENT: Small dry blood crust in nostril. Atraumatic, PERRLA, EOMI, Normocephalic Oral: Oral mucosa dry. No Gingival or Mucosal Lesions/ Ulcerations Neck: Supple, No JVD, Negative Carotid Bruits Chest wall/Lungs: Air entry diminished in bilateral lung bases. No crepitation/rhonchi Cardiovascular: Regular rate, Regular Rhythm, Normal S1, Normal S2, No M/G/R Abdomen: Bowel Sounds Present, Soft, Non Tender, Non-Distended : No dysuria. No renal angle tenderness. No suprapubic tenderness. Extremities: No edema, Capillary Refill Less than 3 Seconds Skin: No rashes, No breakdown Musculoskeletal: No Tenderness to Palpation of Joints or Extremities Neurological: Cranial nerves II-XII grossly intact, DTR 2+/4. No acute focal neurological deficit. Psych/Mental Status: Flat affect Results Lab / Micro Data 01/26/24 12:40 01/26/24 12:40 Labs: Laboratory Results - last 24 hr 01/26/24 12:40: WBC 7.5, RBC 4.34 L, Hgb 14.1, Hct 40.6, MCV 93.5, MCH 32.5 H, MCHC 34.7, RDW Std Deviation 45.2 H, RDW Coeff of Rosmery 13.1, Plt Count 251, MPV 9.6, Immature Gran % (Auto) 1.200 H, Neut % (Auto) 32.9 L, Lymph % (Auto) 50.0 H , [place] % (Auto) 10.3 H, Eos % (Auto) 4.7, Baso % (Auto) 0.9, Absolute Neuts (auto) 2.5, Absolute Lymphs (auto) 3.73, Nucleated RBC % 0, PT 13.2, INR 1.0, Sodium 145, Potassium 3.7, Chloride 111 H, Carbon Dioxide 21.0, Anion Gap 13, BUN 15, Creatinine 1.23, Estim Creat Clear Calc 100.20, Est GFR (MDRD) Af Amer 81, Est GFR (MDRD) Non-Af 67, BUN/Creatinine Ratio 12.2, Glucose 139 H, Calcium 8.6, Total Bilirubin 0.40, Direct Bilirubin 0.15, AST 24, ALT 41, Alkaline Phosphatase 45, Total Protein 7.1, Albumin 3.3, Globulin 3.8, Lipase 31, Blood Type B POSITIVE, Antibody Screen NEGATIVE 01/26/24 12:50: Lactic Acid 3.2 H* Imaging Radiology Impression Abdomen/Pelvis CT 01/26/24 12:43 IMPRESSION: Findings suggestive of colitis. Questionable blood within the stomach. Clinical correlation recommended. Electronically Signed: Juan Miguel Iverson MD at 13:42 EDT , Assessment & Plan Assessment/Plan (1) Acute upper gastrointestinal bleeding: (2) Acute hypotension: (3) Syncope: PLAN: Plan This is 49-year-old gentleman admitted with large volume hematemesis with history of chronic alcohol use. 1. Severe upper GI bleed possible esophageal/gastric varices: Patient is being taken to endoscopy suite from ER. In the endoscopy suite patient had syncope episode last consciousness and CODE BLUE was called but was canceled as there was walking through the hallway. Patient started on IV pantoprazole drip after bolus, octreotide drip and ceftriaxone. GI consulted. Last BP 122/76. Patient will be admitted in ICU overnight after endoscopy for monitoring 2. Syncope most likely due to acute hypotension: Patient was hypotensive in ED, blood pressure low 80/48, heart rate 59/min. Blood pressure improved after volume resuscitation in ED. Patient had second syncope in PACU. Continue volume resuscitation. 3. Chronic severe alcohol disorder with dependence tolerance: Patient has been drinking 15-20 beers every other day. CIWA monitoring. CIWA order set ordered. 4. Chronic alcoholic hepatitis with liver fibrosis: Patient had ultrasound in December 2019 which shows liver stiffness median 9.3 kPa consistent with F2 F3 mild to moderate liver fibrosis. Liver chemistry reviewed. Total bilirubin transaminases, alkaline phosphatase are in normal range. Hypoalbuminemia. Lipase is normal 5. Hyperglycemia, glucose 139. Patient denies history of diabetes mellitus. A1c tomorrow AM. Probably from high alcohol chronic use. DVT prophylaxis, moderate risk but high risk of bleeding with active hemorrhage therefore pharmacological prophylaxis is contraindicated. Bilateral SCDs. Living will/advanced directive/end of life care: Patient does not have living will or advanced directive. Patient does not have degrade power of assistant attorney general for health and he lives alone. After discussion of benefits/risks procedures involved with full code, DNR CC arrest and DNR CC, the patient opted for full code. Patient does want artificial life support including intubation, tube feed, ventilator and/chest compression, central venous catheter, vasopressor and DC shock if needed Total time spent in [id number] encounter in discussion of advanced directive 17 minutes. Laboratory Results 01/26/24 12:40: WBC 7.5, RBC 4.34 L, Hgb 14.1, Hct 40.6, MCV 93.5, MCH 32.5 H, MCHC 34.7, RDW Std Deviation 45.2 H, RDW Coeff of Rosmery 13.1, Plt Count 251, MPV 9.6, Immature Gran % (Auto) 1.200 H, Neut % (Auto) 32.9 L, Lymph % (Auto) 50.0 H , [place] % (Auto) 10.3 H, Eos % (Auto) 4.7, Baso % (Auto) 0.9, Absolute Neuts (auto) 2.5, Absolute Lymphs (auto) 3.73, Nucleated RBC % 0, PT 13.2, INR 1.0, Sodium 145, Potassium 3.7, Chloride 111 H, Carbon Dioxide 21.0, Anion Gap 13, BUN 15, Creatinine 1.23, Estim Creat Clear Calc 100.20, Est GFR (MDRD) Af Amer 81, Est GFR (MDRD) Non-Af 67, BUN/Creatinine Ratio 12.2, Glucose 139 H, Calcium 8.6, Total Bilirubin 0.40, Direct Bilirubin 0.15, AST 24, ALT 41, Alkaline Phosphatase 45, Total Protein 7.1, Albumin 3.3, Globulin 3.8, Lipase 31, Blood Type B POSITIVE, Antibody Screen NEGATIVE 01/26/24 12:50: Lactic Acid 3.2 H* Clinical Impression(s) from Imaging Studies Abdomen/Pelvis CT 01/26/24 12:43 IMPRESSION: Findings suggestive of colitis. Questionable blood within the stomach. Clinical correlation recommended. Electronically Signed: Juan Miguel Iverson MD at 13:42 EDT , Charges/Coding Visit Charges Inpatient E&M: 92058 Init Hosp L3 Procedures Hospitalists Procedures: 12566 Advncd Care Plan 30 Min
[2024-01-26 15:12] LABS: Magnesium 2.1 mg/dL (1.6-2.6); Phosphorus 4.3 mg/dL (2.5-4.9)
[2024-01-26] MEDS: Octreotide 0.5 MG in Dextrose 5%-Water (250mL Bag) 249 ML 25 MG CONT INF (15:16)
[2024-01-26] MEDS: Ceftriaxone 1 GM/50 ML BAG IV (15:16)
--- NOTE | 2024-01-26 15:47 | ED.RN ---
Report given to nurse Chanda. I was informed that they will be up to take patient for the endoscopy.
--- NOTE | 2024-01-26 16:18 | SUR.PREOP ---
PATIENT GAVE PERMISSION FOR THIS NURSE TO CALL HIS MOTHER, ELISEO LOPEZ, TO GIVE CONDITION UPDATE. MOTHER STATES PATIENT HAD SIMILAR EPISODE APPROX ONE YEAR AGO, HAS A Hx OF USING MASSIVE AMOUNTS OF ALEVE AND STATES BECAUSE OF HIS DRINKING, HE'S AN ALCOHOLIC BUT IS IN DENIAL. MOTHER STATES PATIENT'S GIRLFRIEND, KATI, IS REPORTEDLY COMING TO THE HOSPITAL THIS EVENING, UNSURE WHAT TIME. 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
[2024-01-26 16:53] LABS: Reflex Lactate? Y
[2024-01-26 16:53] LABS: Hematocrit 29.2 % (40-54); Hemoglobin 9.7 g/dL (13.0-16.5); Mean Corp Hgb Conc 33.2 g/dL (32-36); Mean Corpuscular Hgb 32.2 pg (27.0-32.0); Mean Platelet Vol. 9.1 fl (6.2-12.0); Platelet Count 208 K/mm3 (150-450); RBC Distribution Width CV 13.3 % (11.6-14.6); RBC Distribution Width SD 47.7 fl (35.1-43.9); Red Blood Count 3.01 M/mm3 (4.6-6.2); White Blood Count 9.8 K/mm3 (4.4-11.0)
--- NOTE | 2024-01-26 16:54 | SUR.PREOP ---
Patient arrived to PACU area for pre op for EGD with Dr. Arroyo from ER. Patient had large bloody emesis (lien red) within [address] Cortes at bedside. Patient lost consciousness and had vagal-like episode. Dr. Cortes ordered to call code overhead. This nurse activated code team. Patient then arousable. color television console monitor and blood pressure and pulse ox attached. Again patient had large bloody emesis, approx 500ml in emesis bag. Stat CBC sent.Patient remains in PACU on monitor. Awaiting anesthesia team to perform EGD. Dr. Arryoo arrived in PACU to see patient. Consent signed by patient. Patient family updated via telephone.
--- NOTE | 2024-01-26 16:54 | CHAPLAIN ---
Type of Pastoral Visit ___ Initial Visit ___ Follow-up Visit ___ On-call Visit ___ General Patient Visit ___ Spiritual Assessment ___ Family Conference ___ Bereavement ___ Rapid Response _x__ Code Blue ___ Other (describe below) Pastoral Care Referral From ___ Patient ___ Family ___ Nurse ___ Physician ___ Manager Assessment ___ Supervisor Vacuum Metalizing _x__ Other (describe below) Sacrament/Intervention ___ Active listening ___ Anointing ___ Restoration ___ Bereavement ___ Communion ___ Ruth exploration ___ ___ Life review _x__ Prayer ___ Reconciliation ___ Sacrament of Sick _x__ Supportive presence ___ Wedding ___ Other (describe below) Pastoral Comments Code Blue was called for this patient in PACU; came into PACU and patient was soon alert and code was cancelled; however asked about family and an RN was then on the phone with family members; no family or support person was in the hospital at this time; spoke with pt and offered support at this time; pt was to be moved to ICU; will follow up with pt tomorrow if possible and desired by patient
--- NOTE | 2024-01-26 17:14 | EX.PCM.CON.G ---
HPI Consult Data Date of Consult: 01/26/24 HPI Narrative Reason for Consultation: Upper GI bleed HPI Narrative: JESSICA LOPEZ, is a 49 M who presents came to ED after he vomited 3 times. He has a history of alcoholism and possible cirrhosis. First time he vomited little bit and second time was large, bright red to coffee-ground and then he passed out. Prior to that he was feeling very weak, lightheaded and drenched with sweats. Patient lives alone therefore does not know how long but he says probably short about 5 minutes. After that he was brought to ED. In ED his BP was low 80/48, heart rate 59/min. Patient is getting well resuscitated and blood pressure improved to 112/73 heart rate 73/min. No hypoxia. He vomited again while in the ED. He was seen by anesthesia and thought to be a high aspiration risk so they elected to intubate him. Patient denies abdominal pain but he states sometimes he gets minimal abdominal discomfort. For last few months, he complained of loose bowel movement 2-3 bowel movements about 2-3 times a week but nonbloody. He attributes to eating a lot of red meats. CT abdomen was done in ED which shows predominantly right-sided colitis. Social history: Patient drinks alcohol about 4 times a week 15-20 beers each time. Usually does not drink hard liquor but yesterday drank water. Smokes cigar every day. Denies substance use. [facility] Medical History Hx of gastric ulcer Hx of gastrointestinal hemorrhage Home Medications ?Medication ?Instructions ?Recorded ?Last Taken ?Type NK 01/26/24 Unknown History Allergy/AdvReac Type Severity Reaction Status Date / Time No Known Allergies Allergy Verified 01/26/24 12:31 Social History Smoking Status: Current some day smoker tobacco type: cigars ROS ROS Narrative Constitutional: Reports acute onset of fatigue and weakness today. No fever. HEENT: Near syncope symptoms as described in HPI. Reports systems reviewed and no addt'l complaints, except as documented Respiratory/Chest: No acute shortness of breath or respiratory distress or wheezing. CVS: No chest pain pressure or tightness Gastrointestinal: As described in HPI. Genitourinary: Denies burning urination or new urinary tract symptoms Musculoskeletal: Denies acute joint pain or limited range of motion. No acute injury Neurologic: Denies seizure-like symptoms. skin: No ulcer. No rash Endocrinology: Reports systems reviewed and no addt'l complaints, except as documented Hematologic/Lymphatic: Reports systems reviewed and no addt'l complaints, except as documented Rest 14 ROS are negative except as mentioned in HPI Physical Exam Narrative General: Alert, Oriented x3, Cooperative. Looks exhausted HEENT: Small dry blood crust in nostril. Atraumatic, PERRLA, EOMI, Normocephalic Oral: Oral mucosa dry. No Gingival or Mucosal Lesions/ Ulcerations Neck: Supple, No JVD, Negative Carotid Bruits Chest wall/Lungs: Air entry diminished in bilateral lung bases. No crepitation/rhonchi Cardiovascular: Regular rate, Regular Rhythm, Normal S1, Normal S2, No M/G/R Abdomen: Bowel Sounds Present, Soft, Non Tender, Non-Distended : No dysuria. No renal angle tenderness. No suprapubic tenderness. Extremities: No edema, Capillary Refill Less than 3 Seconds Skin: No rashes, No breakdown Musculoskeletal: No Tenderness to Palpation of Joints or Extremities Neurological: Cranial nerves II-XII grossly intact, DTR 2+/4. No acute focal neurological deficit. Psych/Mental Status: Flat affect Lab / Micro Data 01/26/24 16:45 01/26/24 12:40 Labs: Laboratory Results - last 24 hr 01/26/24 12:40: WBC 7.5, RBC 4.34 L, Hgb 14.1, Hct 40.6, MCV 93.5, MCH 32.5 H, MCHC 34.7, RDW Std Deviation 45.2 H, RDW Coeff of Rosmery 13.1, Plt Count 251, MPV 9.6, Immature Gran % (Auto) 1.200 H, Neut % (Auto) 32.9 L, Lymph % (Auto) 50.0 H, Sac % (Auto) 10.3 H, Eos % (Auto) 4.7, Baso % (Auto) 0.9, Absolute Neuts (auto) 2.5, Absolute Lymphs (auto) 3.73, Nucleated RBC % 0, PT 13.2, INR 1.0, Sodium 145, Potassium 3.7, Chloride 111 H, Carbon Dioxide 21.0, Anion Gap 13, BUN 15, Creatinine 1.23, Estim Creat Clear Calc 100.20, Est GFR (MDRD) Af Amer 81, Est GFR (MDRD) Non-Af 67, BUN/Creatinine Ratio 12.2, Glucose 139 H, Calcium 8.6, Phosphorus 4.3, Magnesium 2.1, Total Bilirubin 0.40, Direct Bilirubin 0.15, AST 24, ALT 41, Alkaline Phosphatase 45, Total Protein 7.1, Albumin 3.3, Globulin 3.8, Lipase 31, Blood Type B POSITIVE, Antibody Screen NEGATIVE, Crossmatch See Detail 01/26/24 12:50: Lactic Acid 3.2 H* 01/26/24 16:45: WBC 9.8, RBC 3.01 L, Hgb 9.7 L, Hct 29.2 L, MCV 97.0 H, MCH 32.2 H, MCHC 33.2, RDW Std Deviation 47.7 H, RDW Coeff of Rosmery 13.3, Plt Count 208, MPV 9.1 Imaging Radiology Impression Abdomen/Pelvis CT 01/26/24 12:43 IMPRESSION: Findings suggestive of colitis. Questionable blood within the stomach. Clinical correlation recommended. Electronically Signed: Juan Miguel Iverson MD at 13:42 EDT , Assessment & Plan Assessment/Plan (1) Acute upper gastrointestinal bleeding: (2) Acute hypotension: (3) Syncope: PLAN: Plan This is 49-year-old gentleman admitted with large volume hematemesis with history of chronic alcohol use. Severe upper GI bleed possible esophageal/gastric varices: Patient is being taken to endoscopy suite from ER. In the endoscopy suite patient had syncope episode last consciousness and CODE BLUE was called but was canceled as there was walking through the hallway. Patient started on IV pantoprazole drip after bolus, octreotide drip and ceftriaxone. Last BP 122/76. Patient will be admitted in ICU overnight after endoscopy for monitoring. He was explained alternatives, risk, benefits include not withstanding bleeding, infection, sepsis, perforation, need for emergent surgery and . He will have an ASA of 3. Charges/Coding Visit Charges Inpatient E&M: 03470 Init Hosp L3
[2024-01-26] MEDS: 0.9% Normal Saline (Pres. free 10 ML Vial ×3 (17:33→18:31)
[2024-01-26] MEDS: Epinephrine (1 mg/ml) 1 MG/ML VIAL ×3 (17:33→18:31)
--- NOTE | 2024-01-26 18:10 | PRE.ANES_ITS ---
ASA Classification* ASA Classification ASA Classification: 4 and E Assessment & Plan Anesthesia* Anesthesia Assessment Anesthesia Assessment: Discussed sedation and/or anesthesia options, risks, benefits, and alternatives with patient/parents/legal guardian/POA. Questions invited. The patient/parents/legal guardian/POA seems to understand and agrees to proceed with anesthesia plan. Reviewed the physical assessment, medical history, allergy history and patient home medications list prior to surgery/procedure/anesthetic and documented any changes. Performed airway and anesthesia risk assessments. Anesthesia Type Anesthesia Type: General (rapid sequence induction due to bleeding, assessmsnt time stamped after start due to emergency nature) Anesthesia Focused Assessment* Temperature: 98.4 F Pulse Rate: 88 Blood Pressure: 116/66 Respiratory Rate: 16 Pulse Ox: 100 Airway Assessment Mouth opens: >3 cm Mallampati Score: II Focused Labs Anesthesia Preop lab: CBC WBC 9.8 K/mm3 (4.4-11.0) 01/26/24 16:45 RBC 3.01 M/mm3 (4.6-6.2) L 01/26/24 16:45 Hgb 9.7 g/dL (13.0-16.5) L 01/26/24 16:45 Hct 29.2 % (40-54) L 01/26/24 16:45 Plt Count 208 K/mm3 (150-450) 01/26/24 16:45 CHEMISTRY Potassium 3.7 mmol/L (3.5-5.1) 01/26/24 12:40 Sodium 145 mmol/L (136-145) 01/26/24 12:40 Magnesium 2.1 mg/dL (1.6-2.6) 01/26/24 12:40 Phosphorus 4.3 mg/dL (2.5-4.9) 01/26/24 12:40 BUN 15 mg/dL (7-18) 01/26/24 12:40 Creatinine 1.23 mg/dL (0.70-1.30) 01/26/24 12:40 Glucose 139 mg/dL (74-106) H 01/26/24 12:40 TSH 0.98 uIU/mL (0.358-3.74) 11/07/20 10:21 COAG PT 13.2 SECONDS (11.7-14.9) 01/26/24 12:40 Pre-Assessment Diagnosis/Proposed Procedure Planned Operative Procedure(s): egd , stop upper gi bleeding Anesthesia History 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 When Was Last Pacemaker Check QUESTION #4 FULL TEXT: You/Your Family Experience fever (hyperthermia) with Anesthesia Last Oral Intake Last Oral intake: Last Oral Intake NPO since Meds taken in AM with sips of water? Meds patient instructed to take am of surgery PONV PONV - modern languages professor: PONV - modern languages professor Female HX of Motion Sickness HX of N/V After Surgery Non-Smoker Duration of Surgery greater than 60 minutes Number of Risk Factors PONV Score Height & Weight Height & Weight: Anesthesia: Height & Weight Height 6 ft 3 in 01/26/24 12:26 Weight: 111.8 kg 01/26/24 12:26 Body Mass Index (BMI) 30.8 01/26/24 12:26 Respiratory Assessment Respiratory Assessment - modern languages professor: Respiratory Tract Infection Hx - modern languages professor Hx Respiratory Tract Infection STOP Sleep Apnea STOP Sleep Apnea - modern languages professor: STOP Sleep Apnea - modern languages professor Hx Hypertension Hx Sleep Apnea CPAP BIPAP Do you snore loudly (louder than talking or can be heard Do you often feel tired/ fatigued/ sleepy during daytime? Has anyone observed you stop breathing during sleep? STOP Results QUESTION #5 FULL TEXT : Do you snore loudly (louder than talking or can be heard through closed doors)? 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 Specify any problems Hx of Preganancy in last 3 Months Nurse Filling Out Transfusion & Questions: Date: Time: Patient unable to answer at this time (ie. confused, unrespo /Reproduction History /Reproductive History - modern languages professor: /Reproductive Hx- modern languages professor Hx Now Gestational Age (in weeks): EDC: Hx Hx Para Hx Section SAB Active Medications Active Medications: Current Medications Generic Name Dose Route Start Last Admin Trade Name Freq PRN Reason Stop Dose Admin Pantoprazole Sodium 80 mg/ 100 mls @ 10 mls/hr 01/26/24 12:45 01/26/24 13:27 Sodium Chloride CONT INF 10 mls/hr Q10H NICK Administration Octreotide Acetate 0.5 mg/ 250 mls @ 25 mls/hr 01/26/24 14:30 01/26/24 15:16 Dextrose CONT INF 25 mls/hr .Q10H NICK Administration PFSH Medical History Hx of gastric ulcer Hx of gastrointestinal hemorrhage Home Medications ?Medication ?Instructions ?Recorded ?Last Taken ?Type NK 01/26/24 Unknown History Allergy/AdvReac Type Severity Reaction Status Date / Time No Known Allergies Allergy Verified 01/26/24 12:31 Social History Smoking Status: Current some day smoker tobacco type: cigars Review of Systems (Anesthesia) ROS Narrative System reviewed and no additional complaints, except as documented.
[2024-01-26 18:57] LABS: Hematocrit 26.4 % (40-54); Hemoglobin 8.6 g/dL (13.0-16.5); Mean Corp Hgb Conc 32.6 g/dL (32-36); Mean Corpuscular Hgb 31.3 pg (27.0-32.0); Mean Platelet Vol. 9.6 fl (6.2-12.0); Platelet Count 165 K/mm3 (150-450); RBC Distribution Width CV 14.6 % (11.6-14.6); RBC Distribution Width SD 50.7 fl (35.1-43.9); Red Blood Count 2.75 M/mm3 (4.6-6.2); White Blood Count 13.7 K/mm3 (4.4-11.0)
[2024-01-26 19:05] LABS: International Normalized Ratio 1.5; Prothrombin Time (Protime)PT. 17.8 SECONDS (11.7-14.9)
[2024-01-26 19:06] LABS: Partial Thromboplast Time 26.3 Seconds (24.1-36.2)
[2024-01-26] MEDS: Propofol 10MG/Ml 1,000 MG/100 ML Bottle 6.7 MG CONT INF (19:25)
--- NOTE | 2024-01-26 19:28 | OP.CCLET_ITS ---
01/26/2024 Yariel Vegas [address] [place] [address] Re : Upper GI endoscopy procedure for Steve Crespo Dear Dr. Vegas This procedure was performed on January. My impressions and recommendations are as follows: Impressions : - Normal esophagus. - Meaghan-Villanueva tear. Injected. Treated with a heater probe. hemostatic spray applied. - A single bleeding angiodysplastic lesion in the duodenum. Injected. Treated with a heater probe. hemostatic spray applied. - Red blood in the entire stomach. Fluid aspiration performed. Recommendations : - Return patient to ICU for ongoing care. - NPO. - Continue present medications. My findings are described in the full procedure note, which is enclosed. If I can be of further assistance, please feel free to contact me at . Sincerely, Jay Arroyo, 01/26/2024 7:27:33 PM This report has been signed electronically.
--- NOTE | 2024-01-26 19:28 | OP.EGD_ITS ---
Patient Name: Steve Crespo Procedure Date: 01/26/2024 4:08 PM Date of : 1975 Age: 49 Procedure: Upper GI endoscopy Indications: Active gastrointestinal bleeding Providers: Jay Arroyo DO Medicines: Monitored Anesthesia Care Patient Profile: This is a 49 year old male. Refer to note in patient chart for documentation of history and physical. Patient has symptoms of acute vomiting. Complications: No immediate complications. Procedure: Pre-Anesthesia Assessment: - Prior to the procedure, a History and Physical was performed, and patient medications and allergies were reviewed. The patient is competent. The risks and benefits of the procedure and the sedation options and risks were discussed with the patient. All questions were answered and informed consent was obtained. Patient identification and proposed procedure were verified by the physician in the pre-procedure area. Mental Status Examination: alert and oriented. Airway Examination: normal oropharyngeal airway and neck mobility. Respiratory Examination: clear to auscultation. CV Examination: normal. Prophylactic Antibiotics: The patient does not require prophylactic antibiotics. Prior Anticoagulants: The patient has taken no anticoagulant or antiplatelet agents. ASA Grade Assessment: IV - A patient with severe systemic disease that is a constant threat to life. After reviewing the risks and benefits, the patient was deemed in satisfactory condition to undergo the procedure. The anesthesia plan was to use monitored anesthesia care (MAC). Immediately prior to administration of medications, the patient was re-assessed for adequacy to receive sedatives. The heart rate, respiratory rate, oxygen saturations, blood pressure, adequacy of pulmonary ventilation, and response to care were monitored throughout the procedure. The physical status of the patient was re-assessed after the procedure. After obtaining informed consent, the endoscope was passed under direct vision. Throughout the procedure, the patient's blood pressure, pulse, and oxygen saturations were monitored continuously. The gastroscope was introduced through the mouth, and advanced to the second part of duodenum. The upper GI endoscopy was accomplished without difficulty. The patient tolerated the procedure well. Scope In: 5:22:08 PM Scope Out: 6:48:23 PM Total Procedure Duration Time 1 hour 26 minutes 15 seconds Findings: The examined esophagus was normal. A 30 mm bleeding Meaghan-Villanueva tear with stigmata of recent bleeding was found. Area was successfully injected with 20 mL of a 0.1 mg/mL solution of epinephrine for drug delivery. Coagulation for hemostasis using heater probe was successful. To treat the bleeding lesion, hemostatic spray was deployed. Several sprays were applied. There was no bleeding at the end of the procedure. To repair the defect, the tissue edges were approximated and three hemostatic clips were successfully placed. Closure of the defect was successful. 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 There was no bleeding at the end of the procedure. A single 20 mm angiodysplastic lesion with bleeding was found in the duodenal bulb. Area was successfully injected with 10 mL of a 0.1 mg/mL solution of epinephrine for drug delivery. Coagulation for hemostasis using heater probe was successful. To treat the bleeding lesion, hemostatic spray was deployed. Several sprays were applied. There was no bleeding at the end of the procedure. Red blood was found in the entire examined stomach. Fluid aspiration was performed through an aspiration catheter. The amount of fluid collected was 1000 mL. Impression: - Normal esophagus. - Meaghan-Villanueva tear. Injected. Treated with a heater probe. hemostatic spray applied. - A single bleeding angiodysplastic lesion in the duodenum. Injected. Treated with a heater probe. hemostatic spray applied. - Red blood in the entire stomach. Fluid aspiration performed. Recommendation: - Return patient to ICU for ongoing care. - NPO. - Continue present medications. Procedure Code(s): --- Professional --- 51448, Esophagogastroduodenoscopy, flexible, transoral; with control of bleeding, any method 12637, 59,51, Esophagogastroduodenoscopy, flexible, transoral; with directed submucosal injection(s), any substance CPT copyright 2021 [employer]. All rights reserved. The codes documented in this report are preliminary and upon training personnel supervisor review may be revised to meet current compliance requirements. Jay Arroyo DO 01/26/2024 7:27:33 PM This report has been signed electronically. Number of Addenda: 0 Note Initiated On: 01/26/2024 4:08 PM
--- NOTE | 2024-01-26 19:30 | PCM.HOSP.N ---
Hospitalist Note Discussed case with Dr. Arroyo and anesthesiology. Will remain intubated, transitioning to the ICU, administered 2L NS and 3 uPRBC, VS reported as stable with SBP in 90s not on any pressor therapy. GI noted obtained control of bleeding. Maintained on IV protonix drip, octeotride and abx prophylaxis. Will add vent orders, electrolyte protocol orders.
[2024-01-26] MEDS: fentaNYL drip 100 ML 5 MCG CONT INF (19:35)
[2024-01-26 19:36] LABS: Anion Gap 6 (5-15); BUN 22 mg/dL (7-18); BUN/Creat Ratio 17.2 RATIO (10-20); Calcium,Total 5.9 mg/dL (8.5-10.1); Chloride 118 mmol/L (98-107); Creatinine, Serum 1.28 mg/dL (0.70-1.30); EST Glomerular Filtration Rate 64 mL/min (>60); Est Glom Filt Rate - Afr Amer 78 mL/min (>60); Estimated Creatinine Clearance 96.29 ml/min; Glucose 292 mg/dL (74-106); Potassium 5.6 mmol/L (3.5-5.1); Sodium Level 144 mmol/L (136-145)
--- NOTE | 2024-01-26 20:00 | RAD_ITS ---
EXAM: XR CHEST, 1 VIEW CLINICAL INDICATION: ett placement TECHNIQUE: Frontal view of the chest. COMPARISON: No relevant prior studies available. FINDINGS: LUNGS AND PLEURAL SPACES: Unremarkable. No consolidation or edema. No pneumothorax. No effusion. HEART: Unremarkable. Cardiac silhouette not enlarged. MEDIASTINUM: Central airways and mediastinal contour are unremarkable. BONES/JOINTS: Unremarkable. No acute fracture. SOFT TISSUES: Unremarkable. TUBES, LINES AND DEVICES: Nasogastric tube is in place with the distal tip in the proximal stomach. Endotracheal tube is in place with distal tip 8.8 cm above the sol. RAD/Chest 1 View (Portable) IMPRESSION: Endotracheal tube 8.8 cm above the sol. Nasogastric tube in good position. There is no pulmonary abnormality. Electronically Signed: Deshawn Nuñez MD at 20:49 EDT ,
[2024-01-26 20:04] LABS: Magnesium 1.5 mg/dL (1.6-2.6)
[2024-01-26 20:21] LABS: Phosphorus 5.3 mg/dL (2.5-4.9)
--- NOTE | 2024-01-26 20:29 | CON.PCM.CC_ITS ---
HPI Consult Data Date of Consult: 01/26/24 HPI Narrative HPI Narrative: JESSICA LOPEZ, is a 49 M w/ EtOH abuse who presents with hematemesis. He reportedly had 3 episodes of emesis, with second episode having large bright red blood. Also had weakness and syncope. On arrival to ED he was hypotensive with systolics 80s, responded to IVF resuscitation initially. Hgb dropped from 14 to 8.6 over course of the day. He was taken for urgent EGD which showed MW tear and angiodysplastic lesion which were treated. He was left intubated for airway protection d/t copious bloody emesis. Was initially intubated with 6.5 ETT but now exchanged for 7.5 ETT. Requiring levophed as well. CVL and art line in place. ROS: Unable to obtain as pt intubated [facility] Medical History Hx of gastric ulcer Hx of gastrointestinal hemorrhage Home Medications ?Medication ?Instructions ?Recorded ?Last Taken ?Type NK 01/26/24 Unknown History Allergy/AdvReac Type Severity Reaction Status Date / Time No Known Allergies Allergy Verified 01/26/24 12:31 Social History Smoking Status: Current some day smoker tobacco type: cigars Objective Data Objective Data Vital Signs: Vital Signs Last response 3 Temperature 36.9 C 01/26/24 18:10 Temperature Source Temporal 01/26/24 12:26 Pulse Rate 88 01/26/24 18:10 Respiratory Rate 16 01/26/24 18:10 Respiratory Pattern Normal 01/26/24 12:33 Blood Pressure 116/66 01/26/24 18:10 Blood Pressure Mean 82 01/26/24 17:00 Blood Pressure Source Monitor 01/26/24 17:00 Blood Pressure Position Supine 01/26/24 17:00 Blood Pressure Location Right Arm 01/26/24 17:00 Pulse Ox 100 01/26/24 18:10 Oxygen Delivery Method Nasal Cannula 01/26/24 17:00 Oxygen Flow Rate (L/min) 5 01/26/24 18:10 I&O: I&O Last 24 Hours 3 01/25/24 01/26/24 01/26/24 23:59 11:59 23:59 Intake Total 2360 / 2360 Balance 2360 / 236 I&O: Total Stay 3 01/26/24 12:25 thru 01/26/24 16:53 Intake Total 236 Balance 236 Current Meds Ordered / Administered: Current meds ordered / Administered 3 Generic Name Dose Route Start Last Admin Trade Name Tonyq PRN Reason Stop Dose Admin Chlorhexidine Gluconate 15 ml 01/26/24 22:00 Chlorhexidine 15 Ml PO BID NICK Pantoprazole Sodium 80 mg/ 100 mls @ 10 mls/hr 01/26/24 12:45 01/26/24 13:27 Sodium Chloride CONT INF 10 mls/hr Q10H NICK Administration Octreotide Acetate 0.5 mg/ 250 mls @ 25 mls/hr 01/26/24 14:30 01/26/24 15:16 Dextrose CONT INF 25 mls/hr .Q10H NICK Administration Ceftriaxone Sodium 1 gm in 50 mls @ 100 mls/hr 01/27/24 10:00 Rocephin IV 02/03/24 10:01 Q24 NICK Sodium Chloride 1,000 mls @ 1,000 mls/hr 01/26/24 19:32 IV 01/26/24 20:31 .Q1H NICK Metronidazole 500 mg in 100 mls @ 100 mls/hr 01/26/24 19:32 Flagyl IV Q8 NICK Potassium Chloride/Sodium Chloride 40 meq in 1,000 mls @ 150 mls/hr 01/26/24 19:32 IV 01/27/24 08:51 .Q6H40M NICK Propofol 1,000 mg in 100 mls @ 6.708 mls/hr 01/26/24 19:32 Diprivan CONT INF .Q12H NICK Protocol 10 MCG/KG/MIN Fentanyl 100 mls @ 5 mls/hr 01/26/24 19:32 CONT INF UD NICK Protocol 50 MCG/HR Dexmedetomidine HCl 400 mcg/ 100 mls @ 13.975 mls/hr 01/26/24 20:00 Sodium Chloride CONT INF .Q7H10M NICK Protocol 0.5 MCG/KG/HR Norepinephrine Bitartrate 8 mg 250 mls @ 9.375 mls/hr 01/26/24 20:05 / Sodium Chloride CONT INF .[id number] NICK Protocol 5 MCG/MIN Lorazepam 2 mg 01/26/24 19:32 Lorazepam 2 Mg/Ml Syringe IV UD PRN CIWA score >/=15. Protocol Lorazepam 2 mg 01/26/24 19:32 Lorazepam 2 Mg/Ml Syringe IV Q2H PRN PRN CIWA score > 8 but <15 Protocol Lorazepam 2 mg 01/26/24 19:32 Lorazepam 1 Mg Tablet PO UD PRN CIWA score >/=15. Protocol Lorazepam 2 mg 01/26/24 19:32 Lorazepam 1 Mg Tablet PO Q2H PRN PRN CIWA score > 8 but <15 Protocol Nitroglycerin 0.4 mg 01/26/24 19:32 Nitroglycerin (Inpatient Use) 0.4 Mg Tab.Subl SL Q5M PRN CARDIAC/CHEST PAIN Ondansetron HCl 4 mg 01/26/24 19:32 Ondansetron 4 Mg/2 Ml Vial IV Q8H PRN PRN NAUSEA/VOMITING Sodium Chloride 5 ml 01/26/24 19:32 Sodium Cl For Inhalation 15 Ml Vial.Neb. INHALATION Q5M PRN Suctioning Lab / Micro Data 01/26/24 18:46 01/26/24 18:46 Labs: Laboratory Results - last 24 hr 01/26/24 12:40: WBC 7.5, RBC 4.34 L, Hgb 14.1, Hct 40.6, MCV 93.5, MCH 32.5 H, MCHC 34.7, RDW Std Deviation 45.2 H, RDW Coeff of Rosmery 13.1, Plt Count 251, MPV 9.6, Immature Gran % (Auto) 1.200 H, Neut % (Auto) 32.9 L, Lymph % (Auto) 50.0 H , [place] % (Auto) 10.3 H, Eos % (Auto) 4.7, Baso % (Auto) 0.9, Absolute Neuts (auto) 2.5, Absolute Lymphs (auto) 3.73, Nucleated RBC % 0, PT 13.2, INR 1.0, Sodium 145, Potassium 3.7, Chloride 111 H, Carbon Dioxide 21.0, Anion Gap 13, BUN 15, Creatinine 1.23, Estim Creat Clear Calc 100.20, Est GFR (MDRD) Af Amer 81, Est GFR (MDRD) Non-Af 67, BUN/Creatinine Ratio 12.2, Glucose 139 H, Calcium 8.6, Phosphorus 4.3, Magnesium 2.1, Total Bilirubin 0.40, Direct Bilirubin 0.15, AST 24, ALT 41, Alkaline Phosphatase 45, Total Protein 7.1, Albumin 3.3, Globulin 3.8, Lipase 31, Blood Type B POSITIVE, Antibody Screen NEGATIVE, Crossmatch See Detail 01/26/24 12:50: Lactic Acid 3.2 H* 01/26/24 16:45: WBC 9.8, RBC 3.01 L, Hgb 9.7 L, Hct 29.2 L, MCV 97.0 H, MCH 32.2 H, MCHC 33.2, RDW Std Deviation 47.7 H, RDW Coeff of Rosmery 13.3, Plt Count 208, MPV 9.1 01/26/24 18:46: WBC 13.7 H, RBC 2.75 L, Hgb 8.6 L, Hct 26.4 L, MCV 96.0 H, MCH 31.3, MCHC 32.6, RDW Std Deviation 50.7 H, RDW Coeff of Rosmery 14.6, Plt Count 165, MPV 9.6, PT 17.8 H, INR 1.5, APTT 26.3, Sodium 144, Potassium 5.6 H, Chloride 118 H, Carbon Dioxide 20.0 L, Anion Gap 6, BUN 22 H, Creatinine 1.28, Estim Creat Clear Calc 96.29, Est GFR (MDRD) Af Amer 78, Est GFR (MDRD) Non-Af 64, BUN/Creatinine Ratio 17.2, Glucose 292 H, Calcium 5.9 L*, Phosphorus 5.3 H, M agnesium 1.5 L Imaging Radiology Impression Abdomen/Pelvis CT 01/26/24 12:43 IMPRESSION: Findings suggestive of colitis. Questionable blood within the stomach. Clinical correlation recommended. Electronically Signed: Juan Miguel Iverson MD at 13:42 EDT , Assessment and Plan . Assessment and plan: Physical Exam: Gen - NAD, intubated HEENT - MMM. ETT in place Resp - CTAB. Mechanically ventilated CV - RRR. No m/g/r Abd - Soft, NT, ND Ext - No c/c/e. Skin - No rashes? Neuro - Sedated, intubated. Arousable and moves extremities on sedation I have reviewed the pertinent vital sign, laboratory, and imaging data. ASSESSMENT: # Acute hypoxic respiratory failure ? intubated for EGD/airway protection # Hemorrhagic shock # UGIB/hematemesis ? EGD showed MW tear and single angiodysplastic duodenal lesion treated with injection/cautery # Acute blood loss anemia # CASTRO # Lactic acidosis # Possible colitis # EtOH abuse PLAN: -Adjusted vent to VC+ 600/18/5/35%. Follow ABG, CXR -Requiring multiple sedatives currently, wean as tolerated. Monitor for signs of EtOH withdrawal -Wean levophed to keep MAP > 65. -Cont IVF, switch to bicarb gtt -Follow CBC closely. s/p 3U pRBC. Monitor for additional bleeding post-EGD -Cont PPI gtt, also on octreotide gtt which can likely be stopped. f/u additional GI recs -Empiric abx. f/u Cx -Trend lactate -Thiamine FEN/GI: NPO Proph DVT/GI: SCDs, protonix gtt Critical Care Time: 60 mins The entirety of this encounter was completed via telemedicine
[2024-01-26] MEDS: Norepinephrine 8 MG in 0.9% Normal Saline (250mL Bag) 242 ML 9.4 MG CONT INF (20:30)
[2024-01-26] MEDS: dexMEDEtomidine 400 MCG in 0.9% Normal Saline (100mL Bag) 96 ML 14 MCG CONT INF (21:00)
--- NOTE | 2024-01-26 21:05 | RAD_ITS ---
EXAM: XR CHEST, 1 VIEW CLINICAL INDICATION: ETT/CENTRAL LINE PLACEMENT ASSESSMENT TECHNIQUE: Frontal view of the chest. COMPARISON: 01/26/2024 1954 hours FINDINGS: LUNGS AND PLEURAL SPACES: Unremarkable. No consolidation or edema. No pneumothorax. No effusion. HEART: Unremarkable. Cardiac silhouette not enlarged. MEDIASTINUM: Central airways and mediastinal contour are unremarkable. BONES/JOINTS: Unremarkable. No acute fracture. SOFT TISSUES: Unremarkable. TUBES, LINES AND DEVICES: Endotracheal tube is in place with the distal tip 7.1 cm above the sol. Right jugular catheter is in place with the distal tip overlying the superior vena cava. Nasogastric tube is in. RAD/Chest 1 View (Portable) IMPRESSION: No acute pulmonary abnormality. Support structures in good position. Electronically Signed: Deshawn Nuñez MD at 22:07 EDT ,
[2024-01-26 21:06] LABS: Base Excess -13 mmol/L (-2 to +2); Bicarbonate 15.1 mmol/L (22-26); Blood Gas Specimen Type ART; Mode AC; O2 Delivery Device Adult Vent; PEEP 5; PO2 222 mmHG (75-100); RR 12; SITE Art Line; SO2 100 % (95-99); Total Carbon Dioxide 16 mmol/L; pCO2 36.8 mmHg (35-45); pH 7.22 (7.35-7.45)
--- NOTE | 2024-01-26 21:13 | PCM.HOSP.N ---
Hospitalist Note Patient evaluation upon arrival to the ICU with difficulty with vent setting secondary to ET tube 6.5 despite attempted changes. Patient significantly agitated therefore in addition to propofol and fentanyl Precedex was also initiated in addition to propofol boluses. Additional 1 L fluid initiated given patient intolerance of the sedation. Unfortunately patient with 2 peripheral lines 1 of which was immediately lost. Discussed case with hyperbaric technologist and noted intention to exchange ET tube for 8 given patient habitus and size as well as placement of central line with continued interventions as noted as well as norepinephrine to which he was amenable. ABG will be obtained additionally. Discussed status and interventions and plan of care with patient significant. ET tube exchange note: With respiratory therapy patient 6.5 tube was exchanged over guide with ET tube 8 with placement at 24 at the mouth. Vent settings adjusted as needed and patient seem to tolerate this much better. Follow-up chest x-ray with appropriate placement this time awaiting for formal read. Central Line note: Patient right neck region prepped and draped in standard fashion. US guidance used to obtain access, guidewire threaded without issue, central line catheter placed over guidewire and wire removed w/ cap placed. Lines again drawn and flushed without difficulty. Central line sutured in place. Chest x-ray obtained and central line appears in appropriate placement at this time however awaiting formal read. Procedures Hospitalists Procedures: Other Procedure - See Report (ETT placement/exchange code 36484 and Central line placement code [id number])
[2024-01-26] MEDS: KCL 40mEq in 0.9% NS 40 MEQ/1,000 ML IV.SOLN 150 MEQ IV (21:21)
[2024-01-26] MEDS: 0.9% Normal Saline (1000mL) 1,000 ML 1000 ML IV (21:35)
[2024-01-26] MEDS: Sodium Bicarbonate 8.4% 50 ML Syringe 100 MEQ IV (22:01)
--- NOTE | 2024-01-26 22:13 | ECHOCS_ITS ---
Reason For Study: Syncope Procedure This was a 2D Doppler, Color Flow transthoracic echocardiogram. Techncially difficult study due to patient condition. Patient on a vent, contrast injection was used. Exam performed portable in ICU/CCU. Left Ventricle Normal LV size. The estimated ejection fraction is 70 %. No evidence for diastolic dysfunction. No regional wall motion abnormalities noted. Right Ventricle Normal RV size. Normal systolic function. Atria The left and right atria are normal. No doppler evidence for ASD. Mitral Valve There is no mitral valve stenosis. No mitral valve insufficiency. Tricuspid Valve There is no tricuspid stenosis. No tricuspid valve insufficiency. Aortic Valve Trisinus/trileaflet aortic valve. There is no aortic stenosis. No aortic valve insufficiency. Pulmonic Valve There is no pulmonic valvular stenosis. No pulmonic valve insufficiency. Great Vessels Normal aortic root. Pericardium/Pleural No pericardial effusion. Medication Diluted definity 2ml given slow IV push to enhance endocardial definition. MMode/2D Measurements & Calculations LVIDd: 4.2 cm IVSd: 1.2 cm Ao root diam: 3.8 cm LVIDs: 2.5 cm LVPWd: 0.91 cm LA dimension: 3.2 cm FS: 40.5 % LAV(MOD-bp): 31.3 ml LVAd ap4: 31.8 cm2 SV(MOD-sp4): 75.2 ml LAV(MOD-bp) Indexed: 14.5 ml/m2 LVLd ap4: 8.8 cm LAV(MOD-sp2): 27.5 ml EDV(MOD-sp4): 97.1 ml LAV(MOD-sp4): 32.4 ml EDV(sp4-el): 97.5 ml LVAs ap4: 13.4 cm2 LVLs ap4: 7.1 cm ESV(MOD-sp4): 21.9 ml ESV(sp4-el): 21.3 ml EF(MOD-sp4): 77.5 % EF(sp4-el): 78.1 % SV(sp4-el): 76.2 ml LA A4 area: 14.4 cm2 RA A4 area: 15.4 cm2 Time Measurements MV dec time: 0.15 sec Doppler Measurements & Calculations MV E max rajinder: 75.0 cm/sec Lat Peak E' Rajinder: 12.2 cm/sec Med Peak E' Rajidner: 8.8 cm/sec MV A max rajinder: 93.9 cm/sec E/E' lat: 6.1 E/E' med: 8.5 MV E/A: 0.80 MV V2 max: 101.4 cm/sec MV P1/2t max rajinder: 95.6 cm/sec Ao V2 max: 111.1 cm/sec MV max P.1 mmHg MV P1/2t: 52.1 msec Ao max P.9 mmHg MV V2 mean: 61.8 cm/sec MV mean P.8 mmHg MV dec slope: 537.9 cm/sec2 MV V2 VTI: 22.3 cm MVA(P1/2t): 4.2 cm2 LV V1 max: 100.6 cm/sec PA V2 max: 105.5 cm/sec LV V1 max P.1 mmHg LV V1 mean P.9 mmHg LV V1 mean: 64.6 cm/sec LV V1 VTI: 16.2 cm ECHO/Echo Complete W/ Contrast Interpretation Summary The estimated ejection fraction is 70 %. No evidence for diastolic dysfunction. Ordering Physician: Huber Yoon Referring Physician: Shane Vegas MD Performed By: Robin Hinojosa RCS
--- NOTE | 2024-01-26 22:13 | EKG12_ITS ---
Test Reason : SYNCOPE Blood Pressure : / mmHG Vent. Rate : 063 BPM Atrial Rate : 063 BPM P-R Int : 160 ms QRS Dur : 088 ms QT Int : 402 ms P-R-T Axes : 010 -25 011 degrees QTc Int : 411 ms Normal sinus rhythm Inferior infarct , age undetermined Abnormal ECG Confirmed by LELE PEREZ, JEANNE ([id number]), manuscript editor MELANIE STACY ([id number]) on 02/01/2024 10:37:40 A M Referred By: ZAIRA Confirmed By:AMI ROYAL MD
[2024-01-26 22:25] LABS: Hematocrit 23.4 % (40-54); Hemoglobin 7.9 g/dL (13.0-16.5)
[2024-01-26] MEDS: Sodium Bicarbonate 150 MEQ in Dextrose 5%-Water (1000mL Bag) 1,000 ML IV (22:25)
[2024-01-26] MEDS: Midazolam 50 MG in 0.9% Normal Saline (100mL Bag) 90 ML CONT INF (23:00)
[2024-01-26] MEDS: Thiamine Hydrochloride 100 MG in 0.9% Normal Saline (50mL Bag) 50 ML 200 MG IV (23:13)
[2024-01-26 23:20] LABS: Lactic Acid 3.5 mmol/L (0.4-1.9)
[2024-01-26] MEDS: Vasopressin 20 UNITS in 0.9% Normal Saline (50mL Bag) 24 ML 3 UNITS CONT INF (23:20)
[2024-01-26] MEDS: Chlorhexidine 15 ML PO (23:24)
[2024-01-26 23:38] LABS: Fibrinogen 126 mg/dl (203-444)
[2024-01-27] VITALS (50 sets, daily range): BP systolic 77–129; BP diastolic 48–83; PULSE 91–118; RESP 16–21; TEMP 36.5–36.9; O2SAT 87–100
[2024-01-27 00:12] LABS: Base Excess -6 mmol/L (-2 to +2); Bicarbonate 19.1 mmol/L (22-26); Blood Gas Specimen Type ART; Mode PRVC; O2 Delivery Device Adult Vent; PEEP 5; PO2 176 mmHG (75-100); RR 18; SITE Art Line; SO2 100 % (95-99); Total Carbon Dioxide 20 mmol/L; pCO2 30.7 mmHg (35-45)
[2024-01-27] MEDS: Propofol 10MG/Ml 1,000 MG/100 ML Bottle 13.4 MG CONT INF (01:14)
[2024-01-27] MEDS: Octreotide 0.5 MG in Dextrose 5%-Water (250mL Bag) 249 ML 25 MG CONT INF ×3 (01:16→20:04)
[2024-01-27] MEDS: Vasopressin 20 UNITS in 0.9% Normal Saline (50mL Bag) 24 ML 3 UNITS CONT INF (03:22)
[2024-01-27] MEDS: Norepinephrine 8 MG in 0.9% Normal Saline (250mL Bag) 242 ML 31.9 MG CONT INF (03:22)
[2024-01-27] MEDS: metroNIDAZOLE 500 MG/100 ML BAG 100 MG IV ×3 (04:59→20:58)
[2024-01-27 05:02] LABS: Absolute Lymphocyte Count 2.48 X10^3/uL (0.83-4.51); Absolute Neutrophil Count 8.1 X10^3/uL (2.0-7.7); Basophil# 0.03 X10^3/uL; Basophil% 0.3 % (0-1); Eosinophil# 0.01 X10^3/uL; Eosinophils% 0.1 % (0-5); Hematocrit 22.9 % (40-54); Lymphocyte # 2.48 X10^3/ul (0.83-4.51); Lymphocyte % 20.7 % (19-41); Mean Corp Hgb Conc 34.9 g/dL (32-36); Mean Corpuscular Hgb 31.9 pg (27.0-32.0); Mean Corpuscular Volume 91.2 fL (80-94); Monocyte# 1.11 X10^3/uL; Monocyte% 9.3 % (0-10); NRBC Flagged by Analyzer 0.2 % (0-5); Neutrophil # 8.13 X10^3/uL (2.7-7.7); Neutrophil % 67.8 % (47-70); Platelet Count 146 K/mm3 (150-450); RBC Distribution Width CV 15.4 % (11.6-14.6); RBC Distribution Width SD 51.4 fl (35.1-43.9); Red Blood Count 2.51 M/mm3 (4.6-6.2)
[2024-01-27] MEDS: fentaNYL drip 100 ML 15 MCG CONT INF ×2 (05:20→12:19)
[2024-01-27] MEDS: Sodium Bicarbonate 150 MEQ in Dextrose 5%-Water (1000mL Bag) 1,000 ML IV ×3 (06:03→20:58)
[2024-01-27 06:26] LABS: ALB/GLOB Ratio 1.1 RATIO (0.9-2.4); AST(SGOT) 71 U/L (15-37); Alanine Aminotransfer ALT/SGPT 51 U/L (16-61); Alkaline Phosphatase 21 U/L (45-117); Anion Gap 7 (5-15); BUN 27 mg/dL (7-18); BUN/Creat Ratio 20.8 RATIO (10-20); Calcium,Total 6.5 mg/dL (8.5-10.1); Chloride 116 mmol/L (98-107); EST Glomerular Filtration Rate 63 mL/min (>60); Est Glom Filt Rate - Afr Amer 76 mL/min (>60); Estimated Creatinine Clearance 94.81 ml/min; Globulin 1.9 g/dL (2.2-4.2); Glucose 173 mg/dL (74-106); Potassium 3.9 mmol/L (3.5-5.1); Protein, Total 3.9 g/dL (6.4-8.2); Sodium Level 146 mmol/L (136-145)
[2024-01-27] MEDS: Propofol 10MG/Ml 1,000 MG/100 ML Bottle 16.8 MG CONT INF ×2 (07:45→13:29)
[2024-01-27] MEDS: Thiamine Hydrochloride 100 MG in 0.9% Normal Saline (50mL Bag) 50 ML 200 MG IV (09:30)
--- NOTE | 2024-01-27 10:34 | PN.CC_ITS ---
Objective Data Objective Data Vital Signs: Vital Signs Last response 3 Temperature 36.7 C 01/27/24 10:13 Temperature Source Temporal 01/27/24 10:13 Pulse Rate 96 01/27/24 10:13 Pulse Strength Normal (2+) 01/27/24 10:00 Respiratory Rate 16 01/27/24 10:13 Respiratory Effort Mechanically Ventilated 01/27/24 10:00 Respiratory Depth Normal 01/27/24 10:00 Respiratory Pattern Normal 01/27/24 10:00 Blood Pressure 105/55 L 01/27/24 10:13 Blood Pressure Mean 71 01/27/24 10:13 Blood Pressure Source Monitor 01/27/24 09:00 Blood Pressure Position Semi-Fowlers 01/27/24 09:00 Blood Pressure Location Left Arm 01/27/24 09:00 Pulse Ox 99 01/27/24 10:13 Oxygen Delivery Method Mechanical Ventilator 01/27/24 10:13 Oxygen Flow Rate (L/min) 5 01/26/24 18:10 Fraction of Inspired Oxygen (FIO2) 25 01/27/24 10:00 CLA-BSI maintained Yes 01/27/24 10:00 I&O: I&O Last 24 Hours 3 01/26/24 01/26/24 01/27/24 11:59 23:59 11:59 Intake Total 3645.57 / 3690.87 3315.40 / 3315.40 Output Total 1100 / 1100 Balance 3645.57 / 3690.87 2215.40 / 2215.40 I&O: Total Stay 3 01/26/24 12:25 thru 01/27/24 10:00 Intake Total 6960.97 Output Total 1100 Balance 5860.97 Current Meds Ordered / Administered: Current meds ordered / Administered 3 Generic Name Dose Route Start Last Admin Trade Name Freq PRN Reason Stop Dose Admin Chlorhexidine Gluconate 15 ml 01/26/24 22:00 01/26/24 23:24 Chlorhexidine 15 Ml PO 15 ml BID NICK Administration Pantoprazole Sodium 80 mg/ 100 mls @ 10 mls/hr 01/26/24 12:45 01/27/24 09:53 Sodium Chloride CONT INF Not Given Q10H NICK Octreotide Acetate 0.5 mg/ 250 mls @ 25 mls/hr 01/26/24 14:30 01/27/24 09:28 Dextrose CONT INF 25 mls/hr .Q10H NICK Administration Ceftriaxone Sodium 1 gm in 50 mls @ 100 mls/hr 01/27/24 10:00 Rocephin IV 02/03/24 10:01 Q24 NICK Metronidazole 500 mg in 100 mls @ 100 mls/hr 01/26/24 19:32 01/27/24 05:59 Flagyl IV Infused Q8 NICK Infusion Propofol 1,000 mg in 100 mls @ 6.708 mls/hr 01/26/24 19:32 01/27/24 07:45 Diprivan CONT INF 25 mcg/kg/min .Q12H NICK 16.8 mls/hr Administration Protocol 10 MCG/KG/MIN Fentanyl 100 mls @ 5 mls/hr 01/26/24 19:32 01/27/24 06:00 CONT INF 150 mcg/hr UD NICK 15 mls/hr Titration Protocol 50 MCG/HR Dexmedetomidine HCl 400 mcg/ 100 mls @ 13.975 mls/hr 01/26/24 20:00 01/27/24 03:32 Sodium Chloride CONT INF Not Given .Q7H10M NICK Protocol 0.5 MCG/KG/HR Norepinephrine Bitartrate 8 mg 250 mls @ 9.375 mls/hr 01/26/24 20:05 01/27/24 06:00 / Sodium Chloride CONT INF 13 mcg/min .[id number] NICK 24.4 mls/hr Titration Protocol 5 MCG/MIN Midazolam HCl 50 mg/ Sodium 100 mls @ 2 mls/hr 01/26/24 21:50 01/26/24 23:00 Chloride CONT INF 1 mg/hr .Q50H NICK 2 mls/hr Administration Protocol 1 MG/HR Vasopressin 20 units/ Sodium 25 mls @ 3 mls/hr 01/26/24 21:50 01/27/24 03:22 Chloride CONT INF 0.04 units/min .Q8H20M NICK 3 mls/hr Administration 0.04 UNITS/MIN Sodium Bicarbonate 150 meq/ 1,150 mls @ 150 mls/hr 01/26/24 21:50 01/27/24 06:03 Dextrose IV 150 mls/hr .Q7H40M NICK Administration Sodium Chloride 500 mls @ 15 mls/hr 01/26/24 21:54 IV PRN PRN Blood Transfusion Sodium Chloride 250 mls @ 15 mls/hr 01/26/24 21:54 IV .[id number] PRN Additional IVPB Infusion Sodium Chloride 250 mls @ 15 mls/hr 01/26/24 21:54 IV .[id number] PRN Saline Flush Thiamine HCl 100 mg/ Sodium 51 mls @ 200 mls/hr 01/26/24 21:58 01/27/24 09:46 Chloride IV Infused DAILY NICK Infusion Lorazepam 2 mg 01/26/24 19:32 Lorazepam 2 Mg/Ml Syringe IV UD PRN CIWA score >/=15. Protocol Lorazepam 2 mg 01/26/24 19:32 Lorazepam 2 Mg/Ml Syringe IV Q2H PRN PRN CIWA score > 8 but <15 Protocol Lorazepam 2 mg 01/26/24 19:32 Lorazepam 1 Mg Tablet PO UD PRN CIWA score >/=15. Protocol Lorazepam 2 mg 01/26/24 19:32 Lorazepam 1 Mg Tablet PO Q2H PRN PRN CIWA score > 8 but <15 Protocol Nitroglycerin 0.4 mg 01/26/24 19:32 Nitroglycerin (Inpatient Use) 0.4 Mg Tab.Subl SL Q5M PRN CARDIAC/CHEST PAIN Ondansetron HCl 4 mg 01/26/24 19:32 Ondansetron 4 Mg/2 Ml Vial IV Q8H PRN PRN NAUSEA/VOMITING Sodium Chloride 5 ml 01/26/24 19:32 Sodium Cl For Inhalation 15 Ml Vial.Neb. INHALATION Q5M PRN Suctioning Sodium Chloride 10 - 40 ml 01/26/24 21:54 0.9% Saline Lock 10 Ml Syringe IV UD PRN SALINE FLUSH Lab / Micro Data 01/28/24 03:30 01/28/24 08:20 Labs: Laboratory Results - last 24 hr 01/26/24 12:40: WBC 7.5, RBC 4.34 L, Hgb 14.1, Hct 40.6, MCV 93.5, MCH 32.5 H, MCHC 34.7, RDW Std Deviation 45.2 H, RDW Coeff of Rosmery 13.1, Plt Count 251, MPV 9.6, Immature Gran % (Auto) 1.200 H, Neut % (Auto) 32.9 L, Lymph % (Auto) 50.0 H , Boundary % (Auto) 10.3 H, Eos % (Auto) 4.7, Baso % (Auto) 0.9, Absolute Neuts (auto) 2.5, Absolute Lymphs (auto) 3.73, Nucleated RBC % 0, PT 13.2, INR 1.0, Sodium 145, Potassium 3.7, Chloride 111 H, Carbon Dioxide 21.0, Anion Gap 13, BUN 15, Creatinine 1.23, Estim Creat Clear Calc 100.20, Est GFR (MDRD) Af Amer 81, Est GFR (MDRD) Non-Af 67, BUN/Creatinine Ratio 12.2, Glucose 139 H, Calcium 8.6, Phosphorus 4.3, Magnesium 2.1, Total Bilirubin 0.40, Direct Bilirubin 0.15, AST 24, ALT 41, Alkaline Phosphatase 45, Total Protein 7.1, Albumin 3.3, Globulin 3.8, Lipase 31, Blood Type B POSITIVE, Antibody Screen NEGATIVE, Crossmatch See Detail 01/26/24 12:50: Lactic Acid 3.2 H* 01/26/24 16:45: WBC 9.8, RBC 3.01 L, Hgb 9.7 L, Hct 29.2 L, MCV 97.0 H, MCH 32.2 H, MCHC 33.2, RDW Std Deviation 47.7 H, RDW Coeff of Rosmery 13.3, Plt Count 208, MPV 9.1 01/26/24 18:46: WBC 13.7 H, RBC 2.75 L, Hgb 8.6 L, Hct 26.4 L, MCV 96.0 H, MCH 31.3, MCHC 32.6, RDW Std Deviation 50.7 H, RDW Coeff of Rosmery 14.6, Plt Count 165, MPV 9.6, PT 17.8 H, INR 1.5, APTT 26.3, Fibrinogen 126 L, Sodium 144, Potassium 5.6 H, Chloride 118 H, Carbon Dioxide 20.0 L, Anion Gap 6, BUN 22 H, Creatinine 1.28, Estim Creat Clear Calc 96.29, Est GFR (MDRD) Af Amer 78, Est GFR (MDRD) Non-Af 64, BUN/Creatinine Ratio 17.2, Glucose 292 H, Calcium 5.9 L*, Phosphorus 5.3 H, Magnesium 1.5 L 01/26/24 22:15: Hgb 7.9 L, Hct 23.4 L, Lactic Acid 3.5 H* 01/27/24 04:45: WBC 12.0 H, RBC 2.51 L, Hgb 8.0 L, Hct 22.9 L, MCV 91.2, MCH 31.9, MCHC 34.9 D, RDW Std Deviation 51.4 H, RDW Coeff of Rosmery 15.4 H, Plt Count 146 L, MPV 10.0, Immature Gran % (Auto) 1.800 H, Neut % (Auto) 67.8, Lymph % (Auto) 20.7, Boundary % (Auto) 9.3, Eos % (Auto) 0.1, Baso % (Auto) 0.3, Absolute Neuts (auto) 8.1 H, Absolute Lymphs (auto) 2.48, Nucleated RBC % 0.2, Sodium 146 H, Potassium 3.9, Chloride 116 H, Carbon Dioxide 23.0, Anion Gap 7, BUN 27 H, Creatinine 1.30, Estim Creat Clear Calc 94.81, Est GFR (MDRD) Af Amer 76, Est GFR (MDRD) Non-Af 63, BUN/Creatinine Ratio 20.8 H, Glucose 173 H, Calcium 6.5 L* , Total Bilirubin 0.20, AST 71 H, ALT 51, Alkaline Phosphatase 21 L, Total Protein 3.9 L, Albumin 2.0 L, Globulin 1.9 L, Albumin/Globulin Ratio 1.1 ABG Data ABG results: ABG 01/26/24 01/27/24 21:02 00:07 Specimen Type ART ART Sample Site Art Line Art Line pH 7.22 L 7.40 Bicarbonate Actual 15.1 L 19.1 L Total CO2 16 20 Base Excess -13 L -6 L O2 Saturation 100 H 100 H O2 % 50.0 35.0 ABG pCO2 36.8 30.7 L ABG pO2 222 H 176 H Jean Test N/A N/A Respiration Rate 12 18 O2 Delivery Device Adult Vent Adult Vent Vent Mode AC PRVC Tidal Volume 550.0 600.0 POC PEEP 5 5 Clinical Comments ac/vc+ Imaging Radiology Impression Abdomen/Pelvis CT 01/26/24 12:43 IMPRESSION: Findings suggestive of colitis. Questionable blood within the stomach. Clinical correlation recommended. Electronically Signed: Juan Miguel Iverson MD at 13:42 EDT , Chest X-Ray 01/26/24 20:00 IMPRESSION: Endotracheal tube 8.8 cm above the sol. Nasogastric tube in good position. There is no pulmonary abnormality. Electronically Signed: Deshawn Nuñez MD at 20:49 EDT , Chest X-Ray 01/26/24 21:05 IMPRESSION: No acute pulmonary abnormality. Support structures in good position. Electronically Signed: Deshawn Nuñez MD at 22:07 EDT , Assessment and Plan . Assessment and plan: 49 M w/ EtOH abuse who presents with hematemesis. He reportedly had 3 episodes of emesis, with second episode having large bright red blood. Also had weakness and syncope. On arrival to ED he was hypotensive with systolics 80s, responded to IVF resuscitation initially. Hgb dropped from 14 to 8.6 over course of the day. He was taken for urgent EGD which showed MW tear and angiodysplastic lesion which were treated. He was left intubated for airway protection d/t copious bloody emesis. Was initially intubated with 6.5 ETT but now exchanged for 7.5 ETT. Requiring levophed as well. CVL and art line in place. 01/27/24 Sedated, but responsive Modest MV requirement No gross bleeding currently F/U EGD planned Continue PPI for documented PUD Physical Exam: Gen - NAD, intubated HEENT - MMM. ETT in place Resp - CTAB. Mechanically ventilated CV - RRR. No m/g/r Abd - Soft, NT, ND Ext - No c/c/e. Skin - No rashes? Neuro - Sedated, intubated. Arousable and moves extremities on sedation I have reviewed the pertinent vital sign, laboratory, and imaging data. ASSESSMENT: # Acute hypoxic respiratory failure ? intubated for EGD/airway protection # Hemorrhagic shock # UGIB/hematemesis ? EGD showed non-bleeding ulcers # Acute blood loss anemia # CASTRO # Lactic acidosis # Possible colitis # EtOH abuse PLAN: -MV support -Requiring multiple sedatives currently, wean as tolerated. Monitor for signs of EtOH withdrawal. Anticipate SBT following EGD -Cont IVF -Follow CBC closely. s/p 3U pRBC. Monitor for additional bleeding post-EGD -Cont PPI gtt, also on octreotide gtt which can likely be stopped -Thiamine FEN/GI: NPO Proph DVT/GI: SCDs, protonix gtt Critical Care Time: 50 min The entirety of this encounter was done via Telemedicine
[2024-01-27] MEDS: Ceftriaxone 1 GM/50 ML BAG IV (10:51)
[2024-01-27] MEDS: Chlorhexidine 15 ML PO (11:00)
--- NOTE | 2024-01-27 11:20 | CASEMGMT ---
Insurance review for hospitals In-network with [facility] insurance if transfer is recommended is as follows: [facility], [place], [facility], [facility], and . Jazmyn Moncada, Discharge Planning Asst
--- NOTE | 2024-01-27 11:22 | CHAPLAIN ---
Type of Pastoral Visit ___ Initial Visit _x__ Follow-up Visit ___ On-call Visit ___ General Patient Visit ___ Spiritual Assessment ___ Family Conference ___ Bereavement ___ Rapid Response ___ Code Blue ___ Other (describe below) Pastoral Care Referral From ___ Patient _x__ Family ___ Nurse ___ Physician ___ Local Area Network Systems Adminstrator ___ Patient Registration Supervisor ___ Other (describe below) Sacrament/Intervention ___ Active listening ___ Anointing ___ Orthodox ___ Bereavement ___ Communion ___ Ruth exploration ___ ___ Life review ___ Prayer ___ Reconciliation ___ Sacrament of Sick _x__ Supportive presence ___ Wedding ___ Other (describe below) Pastoral Comments patient was first seen yesterday for the code blue that was quickly resolved; pt is now on the vent but somewhat alert and able to open eyes, move hands, and respond to questions by nod of head and thumbs up; mother and brother are in the room; offer of support to all; mother indicates relief that pt is making progress and doing better than yesterday; all express appreciation for the follow up but indicate that there are no particular needs today
--- NOTE | 2024-01-27 11:45 | CASEMGMT ---
Addendum entered by Rob Armstrong 01/27/24 15:32: RN CM to room. Pt resting in bed. Awake/alert & able to answer questions appropriately. Pt denies having any concerns w/going home once he is medically ready. Original Note: RN?CM?LATEX DIPPER?CM?to room to meet with patient for initial transition planning/care coordination?assessment.?RN?CM?introduced self and role at [facility].? Pt intubated, but is awake/alert/following commands, able to shake head yes/no, make hand gestures, and use pen/paper to communicate. Pt acknowledges consent to?assessment?at this time.?Pt's mother, Maura, @ bedside and pt agreeable to RN YOJANA speaking w/her. Pt resting in bed in no distress at this time.??? Care providers, pharmacy, and demographics verified/updated at this time. PCP: Dr Vegas. Specialists: Dr Ken Preferred Pharmacy: [facility] Insurance: [employer], [employer] Prescription Benefit:?Yes Living Will/HPOA:? Pt does not currently have LW/HCPOA LNOK: Mother, Maura. 2 brothers. Pt has no children and father is . Living Arrangements: Lives alone in a one-story bungalow w/ one step to enter through the back entrance, which pt usually uses. Bedroom is on main floor. Pt is independent. Transportation:?Pt drives. DME: ?Uses no DME HHC/SNF: No hx of either. Endoscopy staff entering room to complete scope at this time. LEVAR CM will stop back in to talk w/pt later this afternoon. PLAN:??TBD. Pt currently intubated. Anticipate pt will be able to return home @ discharge. Teresa LEONEN?RN?CM
--- NOTE | 2024-01-27 12:37 | NURSING ---
Setup for EGD at 1138. Dr. Arroyo at bedside at 1150. Order to bolus 20mcg propofol to keep patient relaxed during procedure. At 1203, patient began to stir, another propofol 20mcg bolus ordered by Dr. Arroyo. Third 20mcg propofol bolus ordered at 1206. Patient remains relaxed and without agitation at this time.
[2024-01-27] MEDS: Pantoprazole Sodium 80 MG in 0.9% Normal Saline (100mL Bag) 80 ML 10 MG CONT INF ×2 (12:54→20:58)
[2024-01-27] MEDS: Norepinephrine 8 MG in 0.9% Normal Saline (250mL Bag) 242 ML 18.8 MG CONT INF (12:55)
--- NOTE | 2024-01-27 13:33 | OP.EGD_ITS ---
Patient Name: Steve Crespo Procedure Date: 01/27/2024 11:42 AM Date of : 1975 Age: 49 Procedure: Upper GI endoscopy Indications: Hematemesis, Recent gastrointestinal bleeding Providers: Jay Arroyo DO Medicines: Monitored Anesthesia Care Patient Profile: This is a 49 year old male. Refer to note in patient chart for documentation of history and physical. Patient has symptoms of acute vomiting. Complications: No immediate complications. Procedure: Pre-Anesthesia Assessment: - Prior to the procedure, a History and Physical was performed, and patient medications and allergies were reviewed. The risks and benefits of the procedure and the sedation options and risks were discussed with the patient. All questions were answered and informed consent was obtained. Patient identification and proposed procedure were verified by the physician in the pre-procedure area. Mental Status Examination: alert and oriented. Airway Examination: normal oropharyngeal airway and neck mobility. Respiratory Examination: clear to auscultation. CV Examination: normal. Prophylactic Antibiotics: The patient does not require prophylactic antibiotics. Prior Anticoagulants: The patient has taken no anticoagulant or antiplatelet agents. After reviewing the risks and benefits, the patient was deemed in satisfactory condition to undergo the procedure. The anesthesia plan was to use monitored anesthesia care (MAC). Immediately prior to administration of medications, the patient was re-assessed for adequacy to receive sedatives. The heart rate, respiratory rate, oxygen saturations, blood pressure, adequacy of pulmonary ventilation, and response to care were monitored throughout the procedure. The physical status of the patient was re-assessed after the procedure. After obtaining informed consent, the endoscope was passed under direct vision. Throughout the procedure, the patient's blood pressure, pulse, and oxygen saturations were monitored continuously. The Endoscope was introduced through the mouth, and advanced to the second part of duodenum. The upper GI endoscopy was accomplished without difficulty. The patient tolerated the procedure well. Scope In: 12:02:00 PM Scope Out: 12:08:55 PM Total Procedure Duration Time 0 hours 6 minutes 55 seconds Findings: The examined esophagus was normal. One non-bleeding cratered gastric ulcer with no stigmata of bleeding was found in the cardia. The lesion was 10 mm in largest dimension. Few non-bleeding cratered duodenal ulcers with no stigmata of bleeding were found in the duodenal bulb. The largest lesion was 6 mm in largest dimension. Impression: - Normal esophagus. - Non-bleeding gastric ulcer with no stigmata of bleeding. - Non-bleeding duodenal ulcers with no stigmata of bleeding. - No specimens collected. Recommendation: - Return patient to ICU. - NPO. - Continue present medications. Procedure Code(s): --- Professional --- 52743, Esophagogastroduodenoscopy, flexible, transoral; diagnostic, including collection of specimen(s) by brushing or washing, when performed (separate procedure) CPT copyright 2021 [employer]. All rights reserved. The codes documented in this report are preliminary and upon insurance marketing specialist review may be revised to meet current compliance requirements. Jay Arroyo DO 01/27/2024 1:33:11 PM This report has been signed electronically. Number of Addenda: 0 Note Initiated On: 01/27/2024 11:42 AM
--- NOTE | 2024-01-27 13:33 | OP.CCLET_ITS ---
01/27/2024 Yariel Vegas [address] [place] [address] Re : Upper GI endoscopy procedure for tSeve Crespo Dear Dr. Vegas This procedure was performed on Saturday, January 27, 2024. My impressions and recommendations are as follows: Impressions : - Normal esophagus. - Non-bleeding gastric ulcer with no stigmata of bleeding. - Non-bleeding duodenal ulcers with no stigmata of bleeding. - No specimens collected. Recommendations : - Return patient to ICU. - NPO. - Continue present medications. My findings are described in the full procedure note, which is enclosed. If I can be of further assistance, please feel free to contact me at . Sincerely, Jay Arroyo, 01/27/2024 1:33:11 PM This report has been signed electronically.
--- NOTE | 2024-01-27 16:00 | PCM.PN.HOSP ---
Reason for Visit Reason for Visit: Diagnoses Hypotension, unspecified (01/26/24) Gastrointestinal hemorrhage, unspecified (01/26/24) Syncope and collapse (01/26/24) Subjective Subjective Patient was seen and examined today, he is sedated and on the ventilator at the time my examination. Patient underwent an EGD today that showed no evidence of upper GI bleed, there was noted to be gastric and duodenal ulcerations however. Objective Data Objective Data Vital Signs: Vital Signs Temp Pulse Resp BP Pulse Ox O2 Del Method O2 Flow Rate 98.0 F 104 H 16 112/55 L 98 Mechanical Ventilator 5 01/27/24 10:13 01/27/24 15:31 01/27/24 15:31 01/27/24 15:15 01/27/24 15:31 01/27/24 14:00 01/26/24 18:10 FiO2 21 01/27/24 14:00 Oxygen Flow Rate (L/min) 5 Oxygen Delivery Method Mechanical Ventilator Weight: 111.8 kg Body Mass Index (BMI) 30.8 Intake & Output: Intake and Output for Last 24 Hours 01/25/24 01/26/24 01/27/24 23:59 23:59 23:59 Intake Total 3645.57 / 3690.87 5098.45 / 5098.45 Output Total 1425 / 1425 Balance 3645.57 / 3690.87 3673.45 / 3673.45 Lab / Micro Data 01/27/24 04:45 01/27/24 04:45 Labs: Laboratory Results - last 24 hr 01/26/24 12:40: Crossmatch See Detail 01/26/24 16:45: WBC 9.8, RBC 3.01 L, Hgb 9.7 L, Hct 29.2 L, MCV 97.0 H, MCH 32.2 H, MCHC 33.2, RDW Std Deviation 47.7 H, RDW Coeff of Rosmery 13.3, Plt Count 208, MPV 9.1 01/26/24 18:46: WBC 13.7 H, RBC 2.75 L, Hgb 8.6 L, Hct 26.4 L, MCV 96.0 H, MCH 31.3, MCHC 32.6, RDW Std Deviation 50.7 H, RDW Coeff of Rosmery 14.6, Plt Count 165, MPV 9.6, PT 17.8 H, INR 1.5, APTT 26.3, Fibrinogen 126 L, Sodium 144, Potassium 5.6 H, Chloride 118 H, Carbon Dioxide 20.0 L, Anion Gap 6, BUN 22 H, Creatinine 1.28, Estim Creat Clear Calc 96.29, Est GFR (MDRD) Af Amer 78, Est GFR (MDRD) Non-Af 64, BUN/Creatinine Ratio 17.2, Glucose 292 H, Calcium 5.9 L*, Phosphorus 5.3 H, Magnesium 1.5 L 01/26/24 22:15: Hgb 7.9 L, Hct 23.4 L, Lactic Acid 3.5 H* 01/27/24 04:45: WBC 12.0 H, RBC 2.51 L, Hgb 8.0 L, Hct 22.9 L, MCV 91.2, MCH 31.9, MCHC 34.9 D, RDW Std Deviation 51.4 H, RDW Coeff of Rosmery 15.4 H, Plt Count 146 L, MPV 10.0, Immature Gran % (Auto) 1.800 H, Neut % (Auto) 67.8, Lymph % (Auto) 20.7, Andrews % (Auto) 9.3, Eos % (Auto) 0.1, Baso % (Auto) 0.3, Absolute Neuts (auto) 8.1 H, Absolute Lymphs (auto) 2.48, Nucleated RBC % 0.2, Sodium 146 H, Potassium 3.9, Chloride 116 H, Carbon Dioxide 23.0, Anion Gap 7, BUN 27 H, Creatinine 1.30, Estim Creat Clear Calc 94.81, Est GFR (MDRD) Af Amer 76, Est GFR (MDRD) Non-Af 63, BUN/Creatinine Ratio 20.8 H, Glucose 173 H, Calcium 6.5 L*, Total Bilirubin 0.20, AST 71 H, ALT 51, Alkaline Phosphatase 21 L, Total Protein 3.9 L, Albumin 2.0 L, Globulin 1.9 L, Albumin/Globulin Ratio 1.1 ABG Data ABG results: ABG 01/26/24 01/27/24 21:02 00:07 Specimen Type ART ART Sample Site Art Line Art Line pH 7.22 L 7.40 Bicarbonate Actual 15.1 L 19.1 L Total CO2 16 20 Base Excess -13 L -6 L O2 Saturation 100 H 100 H O2 % 50.0 35.0 ABG pCO2 36.8 30.7 L ABG pO2 222 H 176 H Jean Test N/A N/A Respiration Rate 12 18 O2 Delivery Device Adult Vent Adult Vent Vent Mode AC PRVC Tidal Volume 550.0 600.0 POC PEEP 5 5 Clinical Comments ac/vc+ Radiography Diagnostic Testing: Radiology Impression Chest X-Ray 01/26/24 20:00 IMPRESSION: Endotracheal tube 8.8 cm above the sol. Nasogastric tube in good position. There is no pulmonary abnormality. Electronically Signed: Deshawn Nuñez MD at 20:49 EDT , Chest X-Ray 01/26/24 21:05 IMPRESSION: No acute pulmonary abnormality. Support structures in good position. Electronically Signed: Deshawn Nuñez MD at 22:07 EDT , Echocardiogram 01/26/24 22:13 Interpretation Summary The estimated ejection fraction is 70 %. No evidence for diastolic dysfunction. Ordering Physician: Huber Yoon Referring Physician: Shane Vegas MD Performed By: Robin Hinojosa RCS Physical Exam Const average body habitus and healthy appearing Constitutional Narrative: Patient is lightly sedated and on the ventilator at this time, he does not his head to questions and follows commands HEENT normocephalic, head/scalp atraumatic and moist oral mucous membranes Eyes PERRL, EOMs intact bilaterally and conjunctivae normal Neck no JVD and thyroid normal General: trachea midline Resp no retractions, no use of accessory muscles and clear to auscultation bilaterally Auscultation: Negative for rales, rhonchi or wheezes Cardio regular rate, regular rhythm, S1 normal heart sound, S2 normal heart sound, no murmurs, no rub and no gallops GI normal to inspection, nondistended, normoactive bowel sounds, soft to palpation, non-tender and non-distended Extremity no clubbing, cyanosis or edema Skin no rashes or lesions noted General Skin Exam: no breakdown Neuro Neuro Narrative: Patient is lightly sedated and on the ventilator, he responds to commands and nods his head Sensorium / Orientation: alert Psych Psych Narrative: Patient is lightly sedated on the ventilator, he follows commands and nods his head Assessment & Plan Assessment/Plan (1) Acute upper gastrointestinal bleeding: PLAN: Plan 1. 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 He also follows simple commands. Total clinical time spent by myself addressing the patient's medical issues, reviewing all of his data, and collaborating with patient's care team: 50 minutes Charges/Coding Visit Charges Inpatient E&M: 09845 Subs Hosp L3
[2024-01-27] MEDS: 0.9% Saline Lock 10 ML Syringe IV (16:44)
[2024-01-27] MEDS: Ondansetron 4 MG/2 ML Vial IV (16:45)
[2024-01-27 18:59] LABS: Magnesium 1.5 mg/dL (1.6-2.6)
[2024-01-27] MEDS: proCHLORPERazine 10 MG/2 ML Vial IV (19:54)
[2024-01-27] MEDS: SODIUM PHOS M BASIC D BASIC IV (22:11)
[2024-01-27] MEDS: NORMAL SALINE 0.9% IV (22:11)
[2024-01-28] VITALS (34 sets, daily range): BP systolic 101–154; BP diastolic 61–89; PULSE 80–97; RESP 14–21; TEMP 36.9–37.4; O2SAT 91–100; BMI 32.7
[2024-01-28] MEDS: Magnesium Sulfate 2 GM in Dextrose 5%-Water (100mL Bag) 100 ML IV (00:20)
[2024-01-28 04:01] LABS: Absolute Lymphocyte Count 2.06 X10^3/uL (0.83-4.51); Absolute Neutrophil Count 5.5 X10^3/uL (2.0-7.7); Basophil# 0.02 X10^3/uL; Basophil% 0.2 % (0-1); Eosinophil# 0.13 X10^3/uL; Eosinophils% 1.5 % (0-5); Hematocrit 15.8 % (40-54); Lymphocyte # 2.06 X10^3/ul (0.83-4.51); Lymphocyte % 24.4 % (19-41); Mean Corp Hgb Conc 32.9 g/dL (32-36); Mean Platelet Vol. 8.9 fl (6.2-12.0); Monocyte# 0.65 X10^3/uL; Monocyte% 7.7 % (0-10); NRBC Flagged by Analyzer 0 % (0-5); Neutrophil # 5.51 X10^3/uL (2.7-7.7); Neutrophil % 65.3 % (47-70); POSITIVE COUNT YES; Platelet Count 83 K/mm3 (150-450); RBC Distribution Width CV 15.1 % (11.6-14.6); RBC Distribution Width SD 51.3 fl (35.1-43.9); Red Blood Count 1.68 M/mm3 (4.6-6.2); White Blood Count 8.5 K/mm3 (4.4-11.0)
[2024-01-28 04:02] LABS: Differential Indicated SCAN CRITERIA MET; Hemoglobin 5.2 g/dL (13.0-16.5)
[2024-01-28 04:13] LABS: ALB/GLOB Ratio 0.9 RATIO (0.9-2.4); AST(SGOT) 178 U/L (15-37); Alanine Aminotransfer ALT/SGPT 126 U/L (16-61); Albumin, Serum 1.9 g/dL (3.2-5.0); Alkaline Phosphatase 23 U/L (45-117); Anion Gap 2 (5-15); BUN 13 mg/dL (7-18); BUN/Creat Ratio 11.9 RATIO (10-20); Calcium,Total 6.7 mg/dL (8.5-10.1); Chloride 106 mmol/L (98-107); Creatinine, Serum 1.09 mg/dL (0.70-1.30); EST Glomerular Filtration Rate 77 mL/min (>60); Est Glom Filt Rate - Afr Amer 93 mL/min (>60); Estimated Creatinine Clearance 113.07 ml/min; Globulin 2.1 g/dL (2.2-4.2); Glucose 140 mg/dL (74-106); Phosphorus 2.3 mg/dL (2.5-4.9); Potassium 2.9 mmol/L (3.5-5.1); Sodium Level 142 mmol/L (136-145)
[2024-01-28 04:21] LABS: Magnesium 1.9 mg/dL (1.6-2.6)
--- NOTE | 2024-01-28 04:32 | PCM.HOSP.N ---
Hospitalist Note Repeat HH 5.2, verified with repeat. EGD repeat was not marked appearing and patient VS stable. No recurrent hematemesis. 2 u PRBC are already on hold, will start with those and order an additional 1 u PRBC.
[2024-01-28] MEDS: NORMAL SALINE 0.9% IV (04:44)
[2024-01-28] MEDS: SODIUM PHOS M BASIC D BASIC IV (04:44)
[2024-01-28] MEDS: 0.9% Saline Lock 10 ML Syringe IV ×5 (04:44→20:53)
[2024-01-28] MEDS: Sodium Bicarbonate 150 MEQ in Dextrose 5%-Water (1000mL Bag) 1,000 ML IV (04:45)
[2024-01-28] MEDS: Potassium Chloride 20mEq/100mL 20 MEQ/100 ML IV.SOLN. 100 MEQ IV BOLUS ×2 (04:45→05:47)
[2024-01-28 05:02] LABS: Differential Comment SCANNED
[2024-01-28 05:03] LABS: Anisocytosis 2+; Hypochromasia 1+; Platelet Estimate MKD DEC (ADEQ); Polychromasia 1+
[2024-01-28 05:18] LABS: International Normalized Ratio 1.1; Prothrombin Time (Protime)PT. 14.6 SECONDS (11.7-14.9)
[2024-01-28 05:19] LABS: Partial Thromboplast Time 29.1 Seconds (24.1-36.2)
[2024-01-28] MEDS: Pantoprazole Sodium 80 MG in 0.9% Normal Saline (100mL Bag) 80 ML 10 MG CONT INF ×2 (05:47→17:01)
[2024-01-28] MEDS: Octreotide 0.5 MG in Dextrose 5%-Water (250mL Bag) 249 ML 25 MG CONT INF ×2 (05:47→17:00)
[2024-01-28] MEDS: metroNIDAZOLE 500 MG/100 ML BAG 100 MG IV ×3 (06:50→20:53)
[2024-01-28] MEDS: Thiamine Hydrochloride 100 MG in 0.9% Normal Saline (50mL Bag) 50 ML 200 MG IV (08:17)
[2024-01-28 08:50] LABS: Anion Gap 2 (5-15); BUN 11 mg/dL (7-18); Calcium,Total 6.6 mg/dL (8.5-10.1); Chloride 109 mmol/L (98-107); EST Glomerular Filtration Rate 85 mL/min (>60); Est Glom Filt Rate - Afr Amer 103 mL/min (>60); Estimated Creatinine Clearance 127.12 ml/min; Glucose 126 mg/dL (74-106); Phosphorus 2.2 mg/dL (2.5-4.9); Potassium 3.1 mmol/L (3.5-5.1); Sodium Level 143 mmol/L (136-145)
[2024-01-28] MEDS: Ceftriaxone 1 GM/50 ML BAG IV (09:32)
--- NOTE | 2024-01-28 10:29 | PCM.PN.TICU ---
Objective Data Objective Data Vital Signs: Vital Signs Last response Temperature 37.1 C 01/28/24 10:00 Temperature Source Temporal 01/28/24 10:00 Pulse Rate 97 01/28/24 10:00 Pulse Strength Weak (1+) 01/27/24 20:13 Respiratory Rate 20 H 01/28/24 10:00 Respiratory Effort Normal, Non-Labored 01/28/24 08:00 Respiratory Depth Normal 01/28/24 08:00 Respiratory Pattern Normal 01/28/24 08:00 Blood Pressure 142/83 H 01/28/24 10:00 Blood Pressure Mean 102 01/28/24 10:00 Blood Pressure Source Monitor 01/28/24 10:00 Blood Pressure Position Semi-Fowlers 01/28/24 10:00 Blood Pressure Location Left Arm 01/28/24 10:00 Pulse Ox 96 01/28/24 10:00 Oxygen Delivery Method Nasal Cannula 01/28/24 10:00 Oxygen Flow Rate (L/min) 2 01/28/24 10:00 Fraction of Inspired Oxygen (FIO2) 21 01/27/24 14:00 CLA-BSI maintained Yes 01/28/24 10:00 I&O: I&O Last 24 Hours 01/27/24 01/27/24 01/28/24 11:59 23:59 11:59 Intake Total 3664.65 / 6999.58 3334.93 / 6999.58 2498.09 / 2498.09 Output Total 1100 / 2475 1375 / 2475 1900 / 1900 Balance 2564.65 / 4524.58 1959.93 / 4524.58 598.09 / 598.09 I&O: Total Stay 01/26/24 12:25 thru 01/28/24 10:24 Intake [place] 50038.24 Output Total 4375 Balance 8768.24 Current Meds Ordered / Administered: Current meds ordered / Administered Generic Name Dose Route Start Last Admin Trade Name Freq PRN Reason Stop Dose Admin Pantoprazole Sodium 80 mg/ 100 mls @ 10 mls/hr 01/26/24 12:45 01/28/24 05:47 Sodium Chloride CONT INF 10 mls/hr Q10H NICK Administration Octreotide Acetate 0.5 mg/ 250 mls @ 25 mls/hr 01/26/24 14:30 01/28/24 05:47 Dextrose CONT INF 25 mls/hr .Q10H NICK Administration Ceftriaxone Sodium 1 gm in 50 mls @ 100 mls/hr 01/27/24 10:00 01/28/24 10:24 Rocephin IV 02/03/24 10:01 Infused Q24 NICK Infusion Metronidazole 500 mg in 100 mls @ 100 mls/hr 01/26/24 19:32 01/28/24 08:03 Flagyl IV Infused Q8 NICK Infusion Dexmedetomidine HCl 400 mcg/ 100 mls @ 13.975 mls/hr 01/26/24 20:00 01/28/24 08:17 Sodium Chloride CONT INF Not Given .Q7H10M NICK Protocol 0.5 MCG/KG/HR Norepinephrine Bitartrate 8 mg 250 mls @ 9.375 mls/hr 01/26/24 20:05 01/27/24 18:00 / Sodium Chloride CONT INF 0 mcg/min .[id number] NICK 0 mls/hr Titration Protocol 5 MCG/MIN Sodium Bicarbonate 150 meq/ 1,150 mls @ 150 mls/hr 01/26/24 21:50 01/28/24 04:45 Dextrose IV 150 mls/hr .Q7H40M NICK Administration Sodium Chloride 500 mls @ 15 mls/hr 01/26/24 21:54 IV PRN PRN Blood Transfusion Sodium Chloride 250 mls @ 15 mls/hr 01/26/24 21:54 IV .[id number] PRN Additional IVPB Infusion Sodium Chloride 250 mls @ 15 mls/hr 01/26/24 21:54 IV .[id number] PRN Saline Flush Thiamine HCl 100 mg/ Sodium 51 mls @ 200 mls/hr 01/26/24 21:58 01/28/24 08:41 Chloride IV Infused DAILY NICK Infusion Potassium Chloride 10 meq in 100 mls @ 100 mls/hr 01/28/24 10:00 IV BOLUS 01/28/24 11:59 Q1H NICK Lorazepam 2 mg 01/26/24 19:32 Lorazepam 2 Mg/Ml Syringe IV UD PRN CIWA score >/=15. Protocol Lorazepam 2 mg 01/26/24 19:32 Lorazepam 2 Mg/Ml Syringe IV Q2H PRN PRN CIWA score > 8 but <15 Protocol Lorazepam 2 mg 01/26/24 19:32 Lorazepam 1 Mg Tablet PO UD PRN CIWA score >/=15. Protocol Lorazepam 2 mg 01/26/24 19:32 Lorazepam 1 Mg Tablet PO Q2H PRN PRN CIWA score > 8 but <15 Protocol Nitroglycerin 0.4 mg 01/26/24 19:32 Nitroglycerin (Inpatient Use) 0.4 Mg Tab.Subl SL Q5M PRN CARDIAC/CHEST PAIN Ondansetron HCl 4 mg 01/26/24 19:32 01/27/24 16:45 Ondansetron 4 Mg/2 Ml Vial IV 4 mg Q8H PRN PRN Administration NAUSEA/VOMITING Prochlorperazine Edisylate 10 mg 01/27/24 19:38 01/27/24 19:54 Prochlorperazine 10 Mg/2 Ml Vial IV 10 mg Q4H PRN PRN Administration NAUSEA/VOMITING Sodium Chloride 5 ml 01/26/24 19:32 Sodium Cl For Inhalation 15 Ml Vial.Neb. INHALATION Q5M PRN Suctioning Sodium Chloride 10 - 40 ml 01/26/24 21:54 01/28/24 08:22 0.9% Saline Lock 10 Ml Syringe IV 30 ml UD PRN Administration SALINE FLUSH Lab / Micro Data 01/28/24 20:58 01/28/24 08:20 Labs: Laboratory Results - last 24 hr 01/26/24 12:40: Crossmatch See Detail 01/27/24 04:45: Hemoglobin A1c 5.0 01/27/24 18:41: Phosphorus 2.0 L, Magnesium 1.5 L 01/28/24 03:30: WBC 8.5, RBC 1.68 L, Hgb 5.2 L*, Hct 15.8 L, MCV 94.0, MCH 31.0, MCHC 32.9 D, RDW Std Deviation 51.3 H, RDW Coeff of Rosmery 15.1 H, Plt Count 83 L, MPV 8.9, Immature Gran % (Auto) 0.900, Neut % (Auto) 65.3, Lymph % (Auto) 24.4, [place] % (Auto) 7.7, Eos % (Auto) 1.5, Baso % (Auto) 0.2, Absolute Neuts (auto) 5.5, Absolute Lymphs (auto) 2.06, Nucleated RBC % 0, Differential Comment SCANNED, Diff Path Review May foll, Platelet Estimate MKD DEC, Polychromasia 1+, Hypochromasia 1+, Anisocytosis 2+, Sodium 142, Potassium 2.9 L, Chloride 106, Carbon Dioxide 34.0 H, Anion Gap 2 L, BUN 13, Creatinine 1.09, Estim Creat Clear Calc 113.07, Est GFR (MDRD) Af Amer 93, Est GFR (MDRD) Non-Af 77, BUN/Creatinine Ratio 11.9, Glucose 140 H, Calcium 6.7 L, Phosphorus 2.3 L, Magnesium 1.9, Total Bilirubin 0.30, AST 178 H, ALT 126 H, Alkaline Phosphatase 23 L, Total Protein 4.0 L, Albumin 1.9 L, Globulin 2.1 L, Albumin/Globulin Ratio 0.9 01/28/24 04:49: PT 14.6, INR 1.1, APTT 29.1 01/28/24 05:10: Crossmatch See Detail 01/28/24 08:20: Sodium 143, Potassium 3.1 L, Chloride 109 H, Carbon Dioxide 32.0, Anion Gap 2 L, BUN 11, Creatinine 1.00, Estim Creat Clear Calc 127.12, Est GFR (MDRD) Af Amer 103, Est GFR (MDRD) Non-Af 85, BUN/Creatinine Ratio 11.0, Glucose 126 H, Calcium 6.6 L, Phosphorus 2.2 L Imaging Radiology Impression Echocardiogram 01/26/24 22:13 Interpretation Summary The estimated ejection fraction is 70 %. No evidence for diastolic dysfunction. Ordering Physician: Huber Yoon Referring Physician: Shane Vegas MD Performed By: Robin Hinojosa RCS Assessment and Plan . Assessment and plan: 49 M w/ EtOH abuse who presents with hematemesis. He reportedly had 3 episodes of emesis, with second episode having large bright red blood. Also had weakness and syncope. On arrival to ED he was hypotensive with systolics 80s, responded to IVF resuscitation initially. Hgb dropped from 14 to 8.6 over course of the day. He was taken for urgent EGD which showed MW tear and angiodysplastic lesion which were treated. He was left intubated for airway protection d/t copious bloody emesis. Was initially intubated with 6.5 ETT but now exchanged for 7.5 ETT. Requiring levophed as well. CVL and art line in place. 01/28/24 Extubated No gross active bleeding Received RBC early this am Continue PPI Physical Exam: Gen - NAD HEENT - MMM Resp - CTAB CV - RRR. No m/g/r Abd - Soft, NT, ND Ext - No c/c/e. Skin - No rashes? Neuro - NF I have reviewed the pertinent vital sign, laboratory, and imaging data. ASSESSMENT: # Acute hypoxic respiratory failure ? intubated for EGD/airway protection # Hemorrhagic shock # UGIB/hematemesis ? EGD showed non-bleeding ulcers # Acute blood loss anemia # CASTRO # Lactic acidosis # Possible colitis # EtOH abuse PLAN: -PPI -Follow CBC -Cont PPI -Thiamine -no A/C FEN/GI: NPO Proph DVT/GI: SCD Critical Care Time: 50 min The entirety of this encounter was done via Telemedicine
[2024-01-28] MEDS: Potassium Chloride 10mEq/100mL 10 MEQ/100 ML IV.SOLN. 100 MEQ IV BOLUS ×2 (10:53→12:12)
--- NOTE | 2024-01-28 11:32 | CT_ITS ---
INDICATION: fell at home, bruising to scalp, headache EXAMINATION: CT BRAIN - CT Head or Brain W/O Contrast Injection TECHNIQUE: Multiple axial images were obtained of the head without intravenous contrast. The protocol utilizes one or more of the following dose reduction techniques: automated exposure control, adjustment of mA and/or kV according to patient size,and/or use of iterative reconstruction technique. IV Contrast dosage and agent: None. RADIATION DOSAGE (If Supplied By Facility): CTDIvol = ( 44.99 ) mGy, DLP = ( 796.11 ) mGycm COMPARISON: No relevant prior comparison study available FINDINGS: BRAIN PARENCHYMA: No intra- or extra-axial hemorrhage. No evidence of acute infarct. No intracranial mass or mass effect. There is preservation of the stanley/white matter interface. Posterior fossa structures are unremarkable. CSF SPACES: Appropriate for age. No hydrocephalus. Basal cisterns are patent. CALVARIUM, SKULL BASE, PARANASAL SINUSES AND MASTOID AIR CELLS: Mucosal thickening of the bilateral sphenoids and right maxillary sinuses. No discrete lytic or blastic abnormalities. ORBITS: Both globes, extraocular muscles, optic nerves and retrobulbar fat appear unremarkable. CT/Brain/Head without Contrast IMPRESSION: No acute intracranial process. Electronically Signed: Alejandro Ontiveros MD at 13:25 EDT ,
[2024-01-28 12:19] LABS: Hematocrit 23.5 % (40-54); Hemoglobin 8.1 g/dL (13.0-16.5)
--- NOTE | 2024-01-28 15:43 | PN.HOSP_ITS ---
Reason for Visit Reason for Visit: Diagnoses Hypotension, unspecified (01/26/24) Gastrointestinal hemorrhage, unspecified (01/26/24) Syncope and collapse (01/26/24) Subjective Subjective Patient was seen and examined today, his labs this morning showed a hemoglobin of 5.2, patient was transfused 3 units of packed red blood cells, hemoglobin was rechecked at 8.1. Patient's potassium was also low and he received potassium supplementation, patient's phosphorus was also low as well as his calcium. Labs will be rechecked tomorrow, I talked briefly with gastroenterology about his care, there is a discussion briefly about perhaps having him undergo repeat EGD today but it was ultimately decided that we would just continue to monitor his blood count and continue present therapy. Patient complained of an odd sensation in the occipital area of his scalp, he stated he had fallen and hit the back of his head at home, I elected to order a CT of the brain which did not show any acute pathology. Objective Data Objective Data Vital Signs: Vital Signs Temp Pulse Resp BP Pulse Ox O2 Del Method O2 Flow Rate 98.7 F 81 14 144/82 H 99 Nasal Cannula 1 01/28/24 14:00 01/28/24 15:00 01/28/24 15:00 01/28/24 15:00 01/28/24 15:00 01/28/24 15:00 01/28/24 15:00 FiO2 21 01/27/24 14:00 Oxygen Flow Rate (L/min) 1 Oxygen Delivery Method Nasal Cannula Weight: 119.295 kg Body Mass Index (BMI) 32.7 Intake & Output: Intake and Output for Last 24 Hours 01/26/24 01/27/24 01/28/24 23:59 23:59 23:59 Intake Total 3645.57 / 3690.87 6999.58 / 6999.58 4494.84 / 4494.84 Output Total 2475 / 2475 3650 / 3650 Balance 3645.57 / 3690.87 4524.58 / 4524.58 844.84 / 844.84 Lab / Micro Data 01/28/24 12:10 01/28/24 08:20 Labs: Laboratory Results - last 24 hr 01/26/24 12:40: Crossmatch See Detail 01/27/24 04:45: Hemoglobin A1c 5.0 01/27/24 18:41: Phosphorus 2.0 L, Magnesium 1.5 L 01/28/24 03:30: WBC 8.5, RBC 1.68 L, Hgb 5.2 L*, Hct 15.8 L, MCV 94.0, MCH 31.0, MCHC 32.9 D, RDW Std Deviation 51.3 H, RDW Coeff of Rosmery 15.1 H, Plt Count 83 L, MPV 8.9, Immature Gran % (Auto) 0.900, Neut % (Auto) 65.3, Lymph % (Auto) 24.4, [place] % (Auto) 7.7, Eos % (Auto) 1.5, Baso % (Auto) 0.2, Absolute Neuts (auto) 5.5, Absolute Lymphs (auto) 2.06, Nucleated RBC % 0, Differential Comment SCANNED, Diff Path Review November, Platelet Estimate MKD DEC, Polychromasia 1+, Hypochromasia 1+, Anisocytosis 2+, Sodium 142, Potassium 2.9 L, Chloride 106, C arbon Dioxide 34.0 H, Anion Gap 2 L, BUN 13, Creatinine 1.09, Estim Creat Clear Calc 113.07, Est GFR (MDRD) Af Amer 93, Est GFR (MDRD) Non-Af 77, BUN/Creatinine Ratio 11.9, Glucose 140 H, Calcium 6.7 L, Phosphorus 2.3 L, Magnesium 1.9, Total Bilirubin 0.30, AST 178 H, ALT 126 H, Alkaline Phosphatase 23 L, Total Protein 4.0 L, Albumin 1.9 L, Globulin 2.1 L, Albumin/Globulin Ratio 0.9 01/28/24 04:49: PT 14.6, INR 1.1, APTT 29.1 01/28/24 05:10: Crossmatch See Detail 01/28/24 08:20: Sodium 143, Potassium 3.1 L, Chloride 109 H, Carbon Dioxide 32.0, Anion Gap 2 L, BUN 11, Creatinine 1.00, Estim Creat Clear Calc 127.12, Est GFR (MDRD) Af Amer 103, Est GFR (MDRD) Non-Af 85, BUN/Creatinine Ratio 11.0, G lucose 126 H, Calcium 6.6 L, Phosphorus 2.2 L 01/28/24 12:10: Hgb 8.1 L, Hct 23.5 L Radiography Diagnostic Testing: Radiology Impression Brain CT 01/28/24 11:32 IMPRESSION: No acute intracranial process. Electronically Signed: Alejandro Ontiveros MD at 13:25 EDT , Physical Exam Narrative average body habitus and healthy appearing Constitutional Narrative: Patient is lightly sedated and on the ventilator at this time, he does not his head to questions and follows commands HEENT normocephalic, head/scalp atraumatic and moist oral mucous membranes Eyes PERRL, EOMs intact bilaterally and conjunctivae normal Neck no JVD and thyroid normal General: trachea midline Resp no retractions, no use of accessory muscles and clear to auscultation bilaterally Auscultation: Negative for rales, rhonchi or wheezes Cardio regular rate, regular rhythm, S1 normal heart sound, S2 normal heart sound, no murmurs, no rub and no gallops GI normal to inspection, nondistended, normoactive bowel sounds, soft to palpation, non-tender and non-distended Extremity no clubbing, cyanosis or edema Skin no rashes or lesions noted General Skin Exam: no breakdown Neuro Neuro Narrative: Patient is lightly sedated and on the ventilator, he responds to commands and nods his head Sensorium / Orientation: alert Psych Psych Narrative: Patient is lightly sedated on the ventilator, he follows commands and nods his head Assessment & Plan Assessment/Plan (1) Acute upper gastrointestinal bleeding: PLAN: Plan 1. Acute upper GI bleed secondary to hemorrhage from gastric and duodenal ulcers requiring blood transfusion-patient received 3 units of packed red blood cells today, his H&H will be rechecked tonight at 8:00. Patient was placed back on his octreotide drip and his Protonix drip after I discussed this with gastroenterology. It appears that tele-critical care had stopped the IV Protonix drip and changed the patient over to scheduled IV Protonix and also stopped the patient's octreotide drip. 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
[2024-01-28 21:06] LABS: Hematocrit 23.6 % (40-54); Hemoglobin 8.3 g/dL (13.0-16.5)
[2024-01-29] VITALS (12 sets, daily range): BP systolic 108–140; BP diastolic 78–85; PULSE 68–77; RESP 14–116; TEMP 36.7–37.1; O2SAT 93–100; BMI 31.6
[2024-01-29] MEDS: Octreotide 0.5 MG in Dextrose 5%-Water (250mL Bag) 249 ML 25 MG CONT INF (03:04)
[2024-01-29] MEDS: Pantoprazole Sodium 80 MG in 0.9% Normal Saline (100mL Bag) 80 ML 10 MG CONT INF (03:05)
[2024-01-29] MEDS: 0.9% Saline Lock 10 ML Syringe IV (03:08)
[2024-01-29 03:51] LABS: Absolute Lymphocyte Count 1.61 X10^3/uL (0.83-4.51); Basophil# 0.04 X10^3/uL; Basophil% 0.5 % (0-1); Eosinophil# 0.39 X10^3/uL; Eosinophils% 5.1 % (0-5); Hematocrit 23.1 % (40-54); Hemoglobin 7.9 g/dL (13.0-16.5); Lymphocyte # 1.61 X10^3/ul (0.83-4.51); Mean Corp Hgb Conc 34.2 g/dL (32-36); Mean Corpuscular Hgb 31.2 pg (27.0-32.0); Mean Corpuscular Volume 91.3 fL (80-94); Mean Platelet Vol. 9.5 fl (6.2-12.0); Monocyte# 0.57 X10^3/uL; Monocyte% 7.4 % (0-10); NRBC Flagged by Analyzer 0.8 % (0-5); Neutrophil # 4.98 X10^3/uL (2.7-7.7); POSITIVE COUNT YES; Platelet Count 96 K/mm3 (150-450); RBC Distribution Width SD 49.6 fl (35.1-43.9); Red Blood Count 2.53 M/mm3 (4.6-6.2); White Blood Count 7.7 K/mm3 (4.4-11.0)
[2024-01-29 04:20] LABS: Magnesium 1.8 mg/dL (1.6-2.6)
[2024-01-29 04:24] LABS: Anion Gap 2 (5-15); BUN 6 mg/dL (7-18); BUN/Creat Ratio 7.3 RATIO (10-20); Calcium,Total 7.5 mg/dL (8.5-10.1); Chloride 112 mmol/L (98-107); Creatinine, Serum 0.83 mg/dL (0.70-1.30); EST Glomerular Filtration Rate 106 mL/min (>60); Est Glom Filt Rate - Afr Amer 128 mL/min (>60); Estimated Creatinine Clearance 153.16 ml/min; Glucose 106 mg/dL (74-106); Potassium 3.3 mmol/L (3.5-5.1); Sodium Level 143 mmol/L (136-145)
[2024-01-29] MEDS: SODIUM PHOS M BASIC D BASIC IV (05:06)
[2024-01-29] MEDS: NORMAL SALINE 0.9% IV (05:06)
[2024-01-29] MEDS: Potassium Chloride 20mEq/100mL 20 MEQ/100 ML IV.SOLN. 100 MEQ IV BOLUS (05:06)
[2024-01-29] MEDS: metroNIDAZOLE 500 MG/100 ML BAG 100 MG IV (06:24)
--- NOTE | 2024-01-29 08:38 | PCM.DC ---
Discharge Instructions Diet Discharge Diet: No restrictions Activity Discharge Activity: Return to Normal Activity Weight Bearing Status: Full weight bearing Follow Up Care Test Results: Test results from this visit will be discussed in further detail at your follow-up appointment, if applicable. Discharge Plan Admission Admit Date/Time: 01/26/24 14:39 Primary Reason for Your Visit: GI bleed Attending Provider: Jose Flores Primary Care Provider: Shane Vegas Consulting Providers: Levar Solis; Phong Bustamante; Idris Alvarez; Yonatan Cazares; Forest August; Tashi Mcknight; Merari Cavanaugh; George Umanzor; Mitul Fuentes; Jeanette Sampson; Dea Riley; Dayton Garcia; Abhi Blanca; Maco Azevedo; Jean Carlos Beck; Huber Yoon; Michael Dockery; Kelly Good SENIOR STRATEGY MANAGER Instructions Additional Instructions / Restrictions: Get your CBC rechecked on Tuesday or Tuesday of next week Discharge Orders/Prescriptions Prescriptions: New pantoprazole [Protonix] 40 mg tablet,delayed release (DR/EC) 40 mg PO BID Qty: 60 0RF sucralfate [Carafate] 1 gram tablet 1 g PO .QID Qty: 120 0RF Referrals / Follow Up: Shane Vegas MD [Primary Care Provider] - Jay Arroyo DO [Med Staff - Active Staff] - In 1 Week (Call the office to make an appointment for next week, let them know you were hospitalized and were seen by Dr. Arroyo) Disposition Disposition (needs filled in before D/C Order can be placed): Home, Self Care
[2024-01-29] MEDS: Ceftriaxone 1 GM/50 ML BAG IV (08:39)
--- NOTE | 2024-01-29 08:49 | DS.PCM_ITS ---
Providers Date of Admission: 01/26/24 Date of Discharge: 01/29/24 Primary Care Physician: Dr. Shane Vegas MD Consultations 01/26/24 19:32 Consult: Gastroenterology Routine Consulting Provider: Rebekah Gastroenterology Reason for Consult: GI bleed EMERGENT Consult: No Notified: Yes Date Notified: 01/26/24 Time Notified: 14:40 Method of Notification: ED Physician Initiated Consult: Etl Manager / Pulmonary Medicine Routine Consulting Provider: Pulmonary Medicine [facility] Reason for Consult: Vent management EMERGENT Consult: No Notified: Yes Date Notified: 01/26/24 Time Notified: 19:01 Method of Notification: Text Reason For Visit: ACUTE UPPER GI BLEED Diagnosis Discharge Diagnosis (1) Acute upper gastrointestinal bleeding: Status: Acute Code(s): K92.2 - Gastrointestinal hemorrhage, unspecified Plan 1. Acute upper GI bleed secondary to hemorrhage from gastric and duodenal ulcers requiring blood transfusion-patient received 3 units of packed red blood cells today, his H&H will be rechecked tonight at 8:00. Patient was placed back on his octreotide drip and his Protonix drip after I discussed this with gastroenterology. It appears that tele-critical care had stopped the IV Protonix drip and changed the patient over to scheduled IV Protonix and also stopped the patient's octreotide drip. 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-complicates care, management, recovery, and prognosis #4 syncope-most likely secondary to vasovagal reasons (vomiting) #5 hypokalemia-patient's labs will be rechecked tomorrow, he received potassium supplementation #6 hypophosphatemia-patient's phosphate will be rechecked tomorrow #7 Meaghan-Villanueva tear #8 angiodysplastic lesion of the duodenum Total clinical time spent by myself addressing the patient's medical issues, reviewing all of his data, and collaborating with patient's care team: 35 minutes Medications at Discharge Home Medications pantoprazole 40 mg tablet,delayed release (Protonix) 40 mg PO BID #60 tabs 01/29/24 sucralfate 1 gram tablet (Carafate) 1 g PO .QID #120 tabs 01/29/24 Hospital Course Operations None Procedures 2-D Echocardiogram, Blood transfusion, Central line placement and EGD Summary of Care Provided Minutes Spent on Discharge: 32 Hospital Course: This 49-year-old white male seen in the emergency room at [facility] with complaints of red bloody emesis x 2, patient also stated he passed out next to the toilet and when he awoke he called 911 to have the squad bring to the emergency room. Patient drinks alcohol and he stated he drinks 12-24 beers 3 days a week. Patient was noted to be hypotensive in the emergency room, CBC showed a normal hemoglobin and white blood cell count, patient was given 1 L of IV fluid and placed on a Protonix drip after a Protonix bolus. Abdominal/pelvic CT was performed which showed findings suggestive of colitis and questionable blood within the stomach. Patient had an additional bloody emesis in the emergency room and he was placed on an octreotide drip and Rocephin. Patient was taken to the endoscopy suite from the emergency room, in the endoscopy suite the patient had a syncopal episode and lost consciousness, a CODE BLUE was initially called, patient received some brief chest compressions but the CODE BLUE was canceled and the patient was intubated and underwent an EGD. EGD showed a normal esophagus, there was a Meaghan-Villanueva tear which was injected, there is an angiodysplastic lesion in the duodenum which was injected, patient was admitted to ICU for further care. Patient had a drop in his blood count and the following day he underwent another EGD which showed nonbleeding gastric ulcer and nonbleeding duodenal ulcers. Patient was transfused a total of 5 units of packed red blood cells while in the hospital. He was extubated without incident. On 01/29/2024, patient was seen and examined: On examination he appeared in good health and spirits. Vital signs as documented. Skin warm and dry and without overt rashes. Neck without JVD, neck was supple, trachea midline, thyroid was normal. Lungs clear bilaterally, normal air movement was noted. Heart exam notable for regular rhythm, normal sounds and absence of murmurs, rubs or gallops. Abdomen unremarkable and without evidence of organomegaly, masses, or abdominal aortic enlargement. Bowel sounds are present, abdomen is not distended. Extremities nonedematous, no cyanosis was noted, no clubbing was noted. Neuro: Cranial nerves II through XII are grossly intact, no focal motor deficits were noted, sensation to light touch and pinprick intact, motor exam 5/5 throughout. Psych: Patient is alert and oriented x3, he does not appear anxious or depressed, he does not appear agitated. Patient appears stable for discharge home on 01/29/2024, he was cautioned not to intake alcohol. Weight / BMI Weight Weight: 115.666 kg Body Mass Index (BMI) 31.6 ABG / Lab / Microbiology Data 01/29/24 03:15 01/29/24 03:15 Laboratory: Laboratory Results - last 24 hr 01/26/24 12:40: Crossmatch See Detail 01/28/24 05:10: Crossmatch See Detail 01/28/24 08:20: Sodium 143, Potassium 3.1 L, Chloride 109 H, Carbon Dioxide 32.0, Anion Gap 2 L, BUN 11, Creatinine 1.00, Estim Creat Clear Calc 127.12, Est GFR (MDRD) Af Amer 103, Est GFR (MDRD) Non-Af 85, BUN/Creatinine Ratio 11.0, G lucose 126 H, Calcium 6.6 L, Phosphorus 2.2 L 01/28/24 12:10: Hgb 8.1 L, Hct 23.5 L 01/28/24 20:58: Hgb 8.3 L, Hct 23.6 L 01/29/24 03:15: WBC 7.7, RBC 2.53 L, Hgb 7.9 L, Hct 23.1 L, MCV 91.3, MCH 31.2, MCHC 34.2, RDW Std Deviation 49.6 H, RDW Coeff of Rosmery 15.0 H, Plt Count 96 L, MPV 9.5, Immature Gran % (Auto) 1.000 H, Neut % (Auto) 65.0, Lymph % (Auto) 21.0, [place] % (Auto) 7.4, Eos % (Auto) 5.1 H, Baso % (Auto) 0.5, Absolute Neuts (auto) 5.0, Absolute Lymphs (auto) 1.61, Nucleated RBC % 0.8, Sodium 143, P otassium 3.3 L, Chloride 112 H, Carbon Dioxide 29.0, Anion Gap 2 L, BUN 6 L, Creatinine 0.83, Estim Creat Clear Calc 153.16, Est GFR (MDRD) Af Amer 128, Est GFR (MDRD) Non-Af 106, BUN/Creatinine Ratio 7.3 L, Glucose 106, Calcium 7.5 L, P hosphorus 2.0 L, Magnesium 1.8 Radiography Diagnostic Testing: Radiology Impression Brain CT 01/28/24 11:32 IMPRESSION: No acute intracranial process. Electronically Signed: Alejandro Ontiveros MD at 13:25 EDT , D/C Instructions Discharge Diet: No restrictions Weight Bearing Status: Full weight bearing Meaningful Use Info Meaningful Use Meaningful Use Diagnoses (Choose all that apply): None applicable Ischemic Stroke Statin Dosing Therapy Reference: STATIN DOSE THERAPY REFERENCE: * Patients > 75 years receive moderate or high dose statin therapy. * Patients 75 years or YOUNGER should receive HIGH intensity statin dose unless contraindicated. You will be required to document reason for non-treatment if statin daily dose does not meet guidelines. HIGH DOSE STATIN THERAPY DAILY Atorvastatin > than or = to 40 mg Rosuvastatin > than or = to 20 mg Amlodipine + Atorvastatin > than or = to 2.5/40 mg Ezetimibe + Simvastatin 10/80 mg Simvastatin 80mg Discharge Plan Admission Admit Date/Time: 01/26/24 14:39 Primary Reason for Your Visit: GI bleed Attending Provider: Jose Flores Primary Care Provider: Shane Vegas Consulting Providers: Levar Solis; Phong Bustamante; Idris Alvarez; Yonatan Cazares; Forest August; Tashi Mcknight; Merari Cavanaugh; George Umanzor; Mitul Fuentes; Jeanette Sampson; Dea Riley; Dayton Garcia; Abhi Blanca; Maco Azevedo; Jean Carlos Beck; Huber Yoon; Michael Dockery; Kelly Good CONVERSION WORKER Instructions Additional Instructions / Restrictions: Get your CBC rechecked on Tuesday or Tuesday of next week Discharge Orders/Prescriptions Prescriptions: New pantoprazole [Protonix] 40 mg tablet,delayed release (DR/EC) 40 mg PO BID Qty: 60 0RF sucralfate [Carafate] 1 gram tablet 1 g PO .QID Qty: 120 0RF Referrals / Follow Up: Shane Vegas MD [Primary Care Provider] - Jay Arroyo DO [Med Staff - Active Staff] - In 1 Week (Call the office to make an appointment for next week, let them know you were hospitalized and were seen by Dr. Arroyo) Disposition Disposition (needs filled in before D/C Order can be placed): Home, Self Care Charges/Coding Visit Charges Inpatient E&M: 12832 Disch Hosp >30min
[2024-01-29] MEDS: Thiamine Hydrochloride 100 MG in 0.9% Normal Saline (50mL Bag) 50 ML 200 MG IV (09:22)
[2024-01-29] MEDS: Potassium Chloride Oral Tablet 20 MEQ PO (09:54)
[2024-01-29] MEDS: Na Biphos/Potassium Phosphate PACKET 1 PACKET PO (09:54)
[2024-01-30 14:58] LABS: Pathologist Review Reviewed
== END 2024-01-29 10:45 | disposition home or self-care (01) | DRG 368 ==
LOC: ED 15:19 → ICU 16:35
PROVIDERS: Anesthesiology; Family Medicine; Internal Medicine Gastroenterology; Internal Medicine Pulmonary Disease; Physician Assistant; Admitting Provider Internal Medicine; Emergency Provider Emergency Medicine; PCP Family Medicine; Visit Provider Internal Medicine
PROC: 0DJ08ZZ Inspection of Upper Intestinal Tract, Via Natural or Artificial Opening Endoscopic (ICD-10-PCS; CPT 43235; principal; 2024-01-26 16:25)
DX: K22.6 Gastro-esophageal laceration-hemorrhage syndrome (principal); R57.8 Other shock; J96.01 Acute respiratory failure with hypoxia; E87.20 Acidosis, unspecified; D62 Acute posthemorrhagic anemia; N17.9 Acute kidney failure, unspecified; E88.09 Other disorders of plasma-protein metabolism, not elsewhere classified; E83.39 Other disorders of phosphorus metabolism; K70.10 Alcoholic hepatitis without ascites; F10.20 Alcohol dependence, uncomplicated; K52.9 Noninfective gastroenteritis and colitis, unspecified; F17.290 Nicotine dependence, other tobacco product, uncomplicated; K70.2 Alcoholic fibrosis and sclerosis of liver; E87.6 Hypokalemia; K26.9 Duodenal ulcer, unspecified as acute or chronic, without hemorrhage or perforation; K31.811 Angiodysplasia of stomach and duodenum with bleeding; R45.1 Restlessness and agitation; K25.9 Gastric ulcer, unspecified as acute or chronic, without hemorrhage or perforation; R73.9 Hyperglycemia, unspecified; R55 Syncope and collapse
CPT/HCPCS: 31720; 70450; 71045; 74177; 80048; 80053; 80076; 82803; 83036; 83605; 83690; 83735; 84100; 85014; 85018; 85025; 85027; 85384; 85610; 85730; 86850; 86900; 86901; 86920; 93005; 93306; 94002; 94003; 94668; 94762; 97802; 99285; 99406; J7030; J7050; P9016; Q9957; Q9967; A4216; C8929; J2405; J3490

== ENCOUNTER → 2024-01-31 | Outpatient (CLI) | payer OTHER, MEDICAID, SELFPAY ==
[2024-01-31 15:22] LABS: Hematocrit 28.3 % (40-54); Hemoglobin 9.9 g/dL (13.0-16.5); Mean Corpuscular Hgb 32.4 pg (27.0-32.0); Mean Corpuscular Volume 92.5 fL (80-94); Mean Platelet Vol. 9.8 fl (6.2-12.0); Platelet Count 213 K/mm3 (150-450); RBC Distribution Width CV 15.8 % (11.6-14.6); RBC Distribution Width SD 48.5 fl (35.1-43.9); Red Blood Count 3.06 M/mm3 (4.6-6.2); White Blood Count 5.4 K/mm3 (4.4-11.0)
== END | disposition home or self-care (01) ==
PROVIDERS: PCP Family Medicine; Referring Provider Internal Medicine; Visit Provider Internal Medicine
DX: D50.0 Iron deficiency anemia secondary to blood loss (chronic) (principal)
CPT/HCPCS: 36415; 85027

== ENCOUNTER → 2024-02-27 | Outpatient (CLI) | payer OTHER, MEDICAID, SELFPAY ==
[2024-02-27 09:27] LABS: Hemoglobin 11.8 g/dL (13.0-16.5); Mean Corp Hgb Conc 31.9 g/dL (32-36); Mean Corpuscular Hgb 30.3 pg (27.0-32.0); Mean Corpuscular Volume 95.1 fL (80-94); Mean Platelet Vol. 9.6 fl (6.2-12.0); Platelet Count 224 K/mm3 (150-450); RBC Distribution Width CV 14.4 % (11.6-14.6); Red Blood Count 3.89 M/mm3 (4.6-6.2); White Blood Count 3.8 K/mm3 (4.4-11.0)
[2024-02-27 09:58] LABS: Vitamin B12 268 pg/mL (211-911); Vitamin D,25 Hydroxy 34.4 ng/mL
[2024-02-27 11:12] LABS: ALB/GLOB Ratio 1.1 RATIO (0.9-2.4); AST(SGOT) 16 U/L (15-37); Alanine Aminotransfer ALT/SGPT 20 U/L (16-61); Albumin, Serum 3.5 g/dL (3.2-5.0); Alkaline Phosphatase 46 U/L (45-117); Anion Gap 5 (5-15); BUN 10 mg/dL (7-18); BUN/Creat Ratio 9.5 RATIO (10-20); Calcium,Total 8.9 mg/dL (8.5-10.1); Chloride 110 mmol/L (98-107); Creatinine, Serum 1.05 mg/dL (0.70-1.30); EST Glomerular Filtration Rate 80 mL/min (>60); Est Glom Filt Rate - Afr Amer 97 mL/min (>60); Globulin 3.3 g/dL (2.2-4.2); Glucose 81 mg/dL (74-106); Potassium 3.9 mmol/L (3.5-5.1); Protein, Total 6.8 g/dL (6.4-8.2); Sodium Level 140 mmol/L (136-145)
[2024-02-28 12:00] LABS: GGTP 19 IU/L (0-65)
== END | disposition home or self-care (01) ==
LOC: LAB 09:10
PROVIDERS: PCP Family Medicine; Referring Provider Internal Medicine Gastroenterology; Visit Provider Internal Medicine Gastroenterology
DX: F10.10 Alcohol abuse, uncomplicated (principal); K76.9 Liver disease, unspecified
CPT/HCPCS: 36415; 80053; 82306; 82607; 82977; 85027; 85610

== ENCOUNTER → 2024-04-27 | Outpatient (CLI) | payer OTHER, MEDICAID, SELFPAY ==
[2024-04-27 15:33] LABS: Hemoglobin 13.8 g/dL (13.0-16.5); Mean Corp Hgb Conc 32.9 g/dL (32-36); Mean Corpuscular Hgb 29.9 pg (27.0-32.0); Mean Corpuscular Volume 91.1 fL (80-94); Mean Platelet Vol. 9.7 fl (6.2-12.0); Platelet Count 233 K/mm3 (150-450); RBC Distribution Width CV 13.2 % (11.6-14.6); Red Blood Count 4.61 M/mm3 (4.6-6.2); White Blood Count 4.4 K/mm3 (4.4-11.0)
[2024-04-27 15:40] LABS: International Normalized Ratio 0.9; Prothrombin Time (Protime)PT. 12.6 SECONDS (11.7-14.9)
[2024-04-27 15:52] LABS: AST(SGOT) 14 U/L (15-37); Alanine Aminotransfer ALT/SGPT 25 U/L (16-61); Albumin, Serum 3.5 g/dL (3.2-5.0); Alkaline Phosphatase 47 U/L (45-117); Anion Gap 4 (5-15); BUN 16 mg/dL (7-18); BUN/Creat Ratio 12.9 RATIO (10-20); Calcium,Total 8.8 mg/dL (8.5-10.1); Chloride 108 mmol/L (98-107); Creatinine, Serum 1.24 mg/dL (0.70-1.30); EST Glomerular Filtration Rate 66 mL/min (>60); Est Glom Filt Rate - Afr Amer 80 mL/min (>60); Globulin 3.6 g/dL (2.2-4.2); Glucose 98 mg/dL (74-106); Protein, Total 7.1 g/dL (6.4-8.2); Sodium Level 140 mmol/L (136-145)
== END | disposition home or self-care (01) ==
LOC: LAB 15:06
PROVIDERS: PCP Family Medicine; Referring Provider Internal Medicine Gastroenterology; Visit Provider Internal Medicine Gastroenterology
DX: K76.9 Liver disease, unspecified (principal)
CPT/HCPCS: 36415; 80053; 85027; 85610

== ENCOUNTER → 2025-01-02 | Outpatient (CLI) | payer OTHER, MEDICAID, SELFPAY ==
--- NOTE | 2025-01-02 08:05 | US_ITS ---
PROCEDURE: ABD LIMITED W/ ELASTOGRAPHY REASON FOR EXAM: FATTY LIVER DISEASE COMPARISON: Prior study dated January 13, 2023. TECHNIQUE: Right upper quadrant abdominal ultrasound. [facility] shear wave elastography for non-invasive assessment of liver tissue stiffness. [facility] EPIQ Elite. FINDINGS: LIVER: Size: Unremarkable Length: 17.3 cm Echotexture: Diffusely echogenic suggesting fatty infiltration Contour: Normal Lesions: None identified Elastography: EQI Med: 8.0 kPa EQI Med Rajinder: 1.61 m/s IQR/Med: 13 %* GALLBLADDER: No stones sludge wall thickening or tenderness. COMMON BILE DUCT: Normal measuring 4 mm . PANCREAS: Normal Visualized portions of the right kidney are unremarkable. No right upper quadrant ascites. US/ABD Limited w/ Elastography IMPRESSION: Moderate hepatic fibrosis. F2/F3 Fatty infiltration of the liver. Reference Values: SRU <1.37 m/s (5.7kPa): No to mild fibrosis 1.37 m/s - 2.2 m/s: Moderate to severe fibrosis >2.2 m/s (15kPa): Significant fibrosis / cirrhosis METAVIR Score F2 or higher: 1.34 m/s (5.7kPa) F3 or higher: 1.55 m/s (7.3kPa) F4: 1.80 m/s (10kPa) * If the IQR/Med is >30%, the variance in the measurements is a large and the a ccuracy of the measurement may be in question. Reading Location: [place] [id number]
== END | disposition home or self-care (01) ==
LOC: US 08:03
PROVIDERS: PCP Family Medicine; Referring Provider Internal Medicine Gastroenterology; Visit Provider Internal Medicine Gastroenterology
DX: K74.00 Hepatic fibrosis, unspecified (principal); F10.10 Alcohol abuse, uncomplicated
CPT/HCPCS: 76705; 76981